=== PATIENT | female | born 1995 | race African-American/Black ===

== ENCOUNTER 2019-08-16 18:37 | Emergency (ER) | payer OTHER ==
--- NOTE | 2019-08-16 20:03 | ER ---
Nurse's Notes [facility] Name: Seema Rao Age: 23 yrs Sex: Female : 1995 Arrival Date: 08/16/2019 Time: 18:40 Bed Waiting Private MD: Diagnosis: ED Course: 08/15 18:40 Patient arrived in ED. fj1 19:10 Patient's name was called from ER lobby. No response. sg 19:15 Patient's name was called from ER lobby. No response. sg 19:30 Patient's name was called from ER lobby. No response. sg Administered Medications: No medications were administered Outcome: 20:02 Patient left the ED. sg Signatures: Chandler Hernandez RN RN Huan Arnold fj1
== END 2019-08-16 20:02 | disposition left against medical advice (07) ==
LOC: ER 18:37
DX: Z53.21 Procedure and treatment not carried out due to patient leaving prior to being seen by health care provider (principal)

== ENCOUNTER 2019-08-23 21:03 | Emergency (ER) | payer OTHER ==
--- OUTSIDE RECORDS SUMMARY | 2019-08-23 21:06 | XMS REPORT | Continuity of Care Document ---
:[address] [facility] t Address [facility] [place] [address] [place] [id number] Care Team Providers Name Role Phone Unavailable Unavailable Unavailable Problems This patient has no known problems. Allergies, Adverse Reactions, Alerts This patient has no known allergies or adverse reactions. Medications This patient has no known medications. Procedures This patient has no known procedures. Encounters Start End Encounter Admission Attending Care Care Encounter Source Date/Time Date/Time Type Type Clinicians Facility Department ID 2019-08-22 2019-08-22 Outpatient [id number] 05:24:00 05:24:00 Results This patient has no known results.
[2019-08-23] MEDS ORDERED: PROMETHAZINE INJ 25 MG/ML AMP ONE (21:56)
[2019-08-23] MEDS ORDERED: NA CHLORIDE 0.9% 500 ML ONE (21:57)
[2019-08-23] MEDS ORDERED: MORPHINE 4 MG/ML SYR ONE (21:57)
[2019-08-23 22:13] LABS: Absolute Lymphocytes (CBC) 0.8 K/uL (0.7-4.9); Basophils % 0.4 % (0-1.3); Hematocrit 43.4 % (36.0-45.0); Lymphocytes % 7.7 % (15.3-44.8); MPV 8.1 fL (7.6-11.3); RBC Red Blood Cell Count 4.93 M/uL (3.86-4.86)
[2019-08-23 22:34] LABS: ALT/SGPT 116 U/L (12-78); AST/SGOT 89 U/L (15-37); Albumin 4.3 g/dL (3.4-5.0); Alkaline Phosphatase 157 U/L (45-117); BUN Blood Urea Nitrogen 12 mg/dL (7-18); Bicarbonate 25 mmol/L (21-32); Bilirubin Direct 0.2 mg/dL (0-0.2); Bilirubin Total 0.6 mg/dL (0.2-1.0); Glucose Level 110 mg/dL (74-106); Lipase 170 U/L (73-393); Potassium 3.9 mmol/L (3.5-5.1); Protein, Total 9.1 g/dL (6.4-8.2); Sodium Level 138 mmol/L (136-145)
[2019-08-23 23:11] LABS: Blood Morphology Comment NOT SEEN (NOT SEEN); Platelet Estimate INCR
--- NOTE | 2019-08-23 23:25 | EDPHYS ---
Physician Documentation [facility] Name: Seema Rao Age: 23 yrs Sex: Female : 1995 Arrival Date: 08/23/2019 Time: 21:06 Bed 15 Private MD: ED Physician Florentin Barber HPI: 08/22 21:34 This 23 yrs old Black Female presents to ER via Ambulatory with complaints of Vomiting, rn Weakness. 21:34 The patient presents to the emergency department with nausea, vomiting, abdominal pain. rn Onset: The symptoms/episode began/occurred yesterday. Possible causes: recent surgery. The symptoms are aggravated by movement, pressure, The symptoms are alleviated by nothing. Severity of symptoms: At their worst the symptoms were moderate in the emergency department the symptoms are unchanged. The patient has not experienced similar symptoms in the past. The patient has been recently seen by a physician:. Reports had lap stevan yesterday, since then has been having abd pain and vomiting, not getting worse but sent with nausea medication that is not helping her. Also reports chest pain, worse with deep breathing, no trauma. No cough/hemoptysis. No hx of dvt/pe. No leg swelling. Reports hasn't been doing breathing exercises or coughing like directed. Surgery at [facility] yesterday. . 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 - Social history:: Smoking status: Patient denies any tobacco usage or history of. Patient/guardian denies using alcohol, street drugs, tobacco products. - Family history:: not pertinent. - Hospitalizations: : Patient was recently seen at. ROS: 21:34 Constitutional: Negative for fever, chills, and weight loss, Eyes: Negative for injury, rn pain, redness, and discharge, Neck: Negative for injury, pain, and swelling, Cardiovascular: Negative for edema Respiratory: Negative for cough, wheezing Abdomen/GI: + abd pain and nausea/vomiting Back: Negative for injury and pain, MS/Extremity: Negative for injury and deformity, Skin: Negative for injury, rash, and discoloration, Neuro: Negative for headache, weakness, numbness, tingling, and seizure. Exam: 21:34 Constitutional: This is a well developed, well nourished patient who is awake, alert, rn and in no acute distress. Head/Face: Normocephalic, atraumatic. ENT: dry MM Cardiovascular: Regular rate and rhythm. No JVD. No pulse deficits. Respiratory: Speaking full sentences. No increased work of breathing, no retractions or nasal flaring. Abdomen/GI: soft, in all quadrants, especially near surgical ports. Wounds c/d/i. No rebound. Skin: Warm, dry MS/ Extremity: Pulses equal, no cyanosis. Neurovascular intact. Full, normal range of motion. Equal circumference. Neuro: Awake and alert, GCS 15 Vital Signs: 21:13 BP 104 / 78; Pulse 96; Resp 17; Temp 98.7; Pulse Ox 98% ; Pain 7/10; ll1 08/23 00:15 BP 125 / 84; Pulse 83; Resp 16; Temp 98.2; Pulse Ox 100% ; Pain 0/10; ao MDM: 08/22 21:21 Patient medically screened. rn 23:22 Differential diagnosis: post surgical pain, PE, pleurisy, biliary leak or fluid rn collection. Data reviewed: vital signs, nurses notes, lab test result(s), radiologic studies, CT scan, and as a result, I will discharge patient. Counseling: I had a detailed discussion with the patient and/or guardian regarding: the historical points, exam findings, and any diagnostic results supporting the discharge/admit diagnosis, lab results, radiology results, the need for outpatient follow up, to return to the emergency department if symptoms worsen or persist or if there are any questions or concerns that arise at home. Response to treatment: the patient's symptoms have markedly improved after treatment, and as a result, I will discharge patient. Special discussion: Based on the patient's Hx, exam, and Dx evaluation, there is no indication for emergent surgery or inpatient Tx. It is understood by the patient/guardian that if the Sx's persist or worsen they need to return immediately for re-evaluation. I discussed with the patient/guardian in detail that at this point there is no indication for admission to the hospital. It is understood, however, that if the symptoms persist or worsen the patient needs to return immediately for re-evaluation. ED course: CT chest for PE and abdomen/pelvis neg for PE and post-surgical complication, everything consistent with post-surgical/expected pain. No vomiting or nausea after zofran. States has zofran at home that she picked up today. Will dc home with f/u as needed. . 08/22 21:33 Order name: Basic Metabolic Panel; Complete Time: 23:17 rn 08/22 21:33 Order name: CBC with Diff; Complete Time: 23:17 rn 08/22 21:33 Order name: Hepatic Function; Complete Time: 23:17 rn 08/22 21:33 Order name: Lipase; Complete Time: 23:17 rn 08/22 21:33 Order name: CT Chest For PE Angio rn 08/22 22:17 Order name: Manual Differential; Complete Time: 23:17 EDMS 08/22 21:33 Order name: IV Saline Lock; Complete Time: 22:00 rn 08/22 21:33 Order name: Labs collected and sent; Complete Time: 22:00 rn 08/22 21:33 Order name: CT Abd/Pelvis - IV Contrast Only rn Administered Medications: 21:56 Drug: Phenergan 12.5 mg Route: IVP; Site: right antecubital; ao 22:00 Drug: morphine 4 mg Route: IVP; Site: right antecubital; ao 22:00 Drug: NS 0.9% 500 ml Route: IV; Rate: bolus; Site: right antecubital; ao Disposition: 08/23/19 23:24 Discharged to Home. Impression: Vomiting, unspecified, Pleurisy, Post-surgical abdominal pain. - Condition is Stable. - Discharge Instructions: Nausea and Vomiting, Adult, Pleurisy, Laparoscopic Cholecystectomy, Care After, Cholecystostomy, Care After. - Medication Reconciliation Form, Thank You Letter, Antibiotic Education, Prescription Opioid Use form. - Follow up: Private Physician; When: As needed; Reason: Recheck today's complaints, Re-evaluation by your physician. - Problem is new. - Symptoms have improved. Signatures: Dispatcher [employer] EDMS Florentin Barber MD MD rn Ortiz, Alex, RN RN ao Lewis, Lynsay, RN RN ll1 Corrections: (The following items were deleted from the chart) 08/23 00:16 08/22 23:24 08/23/2019 23:24 Discharged to Home. Impression: Vomiting, unspecified; ao Pleurisy; Post-surgical abdominal pain. Condition is Stable. Forms are Medication Reconciliation Form, Thank You Letter, Antibiotic Education, Prescription Opioid Use. Follow up: Private Physician; When: As needed; Reason: Recheck today's complaints, Re-evaluation by your physician. Problem is new. Symptoms have improved. rn
--- NOTE | 2019-08-23 23:25 | ER ---
Nurse's Notes [facility] Name: Seema Rao Age: 23 yrs Sex: Female : 1995 Arrival Date: 08/23/2019 Time: 21:06 Bed 15 Private MD: Diagnosis: Vomiting, unspecified;Pleurisy;Post-surgical abdominal pain Presentation: 08/22 21:13 Chief complaint: Patient states: Abdominal pain with N/V since cholecystectomy ll1 yesterday at [facility]. Fever 99.1. Pain to mid chest and SOB with pain. Coronavirus screen: Proceed with normal triage. Patient denies a cough. Patient denies shortness of breath or difficulty breathing. Patient denies measured and/or subjective temperature greater than 100.4F prior to today's visit. Patient denies travel on a cruise ship or to a country the [facility]NOTE 2] currently lists as an affected area. Patient denies contact with known and/or suspected case of COVID-19. Ebola Screen: Patient denies travel to an Ebola-affected area in the 21 days before illness onset. Initial Sepsis Screen: Does the patient meet any 2 criteria? HR > 90 bpm. No. Patient's initial sepsis screen is negative. Does the patient have a suspected source of infection? Yes: Acute abdominal pain. Risk Assessment: Do you want to hurt yourself or someone else? Patient reports no desire to harm self or others. Onset of symptoms was August 22, 2019. 21:13 Method Of Arrival: Ambulatory ll1 21:13 Acuity: MARY ANNE 3 ll1 Triage Assessment: 23:00 General: Appears in no apparent distress. uncomfortable, Behavior is calm, cooperative, ao appropriate for age. Pain: Complains of pain in abdomen. EENT: No signs and/or symptoms were reported regarding the EENT system. Neuro: Level of Consciousness is awake, alert, obeys commands, Oriented to person, place, time, situation, Appropriate for age Moves all extremities. Full function Speech is normal. Cardiovascular: Capillary refill < 3 seconds Patient's skin is warm and dry. Respiratory: Airway is patent Respiratory effort is even, unlabored. GI: Abdomen is non-distended, Reports lower abdominal pain, nausea, vomiting. : No signs and/or symptoms were reported regarding the genitourinary system. Derm: Skin is intact, Skin is pink, warm \T\ dry. normal, Skin temperature is warm. Musculoskeletal: No signs and/or symptoms reported regarding the musculoskeletal system. 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 - Social history:: Smoking status: Patient denies any tobacco usage or history of. Patient/guardian denies using alcohol, street drugs, tobacco products. - Family history:: not pertinent. - Hospitalizations: : Patient was recently seen at. Screenin/17 00:08 Abuse screen: Denies threats or abuse. Denies injuries from another. Nutritional ao screening: No deficits noted. Tuberculosis screening: No symptoms or risk factors identified. Fall Risk None identified. Assessment: 08/22 23:00 General: Appears See triage assessment. ao 08/23 00:14 Reassessment: Dc given to patient. Pt agree with POC and to follow up with PCP. ao Vital Signs: 08/22 21:13 BP 104 / 78; Pulse 96; Resp 17; Temp 98.7; Pulse Ox 98% ; Pain 7/10; ll1 08/23 00:15 BP 125 / 84; Pulse 83; Resp 16; Temp 98.2; Pulse Ox 100% ; Pain 0/10; ao ED Course: 08/22 21:06 Patient arrived in ED. cl3 21:15 Triage completed. ll1 21:15 Arm band placed on. ll1 21:21 Florentin Barber MD is Attending Physician. rn 21:38 Elmer Latham RN is Primary Nurse. ao 21:55 Inserted saline lock: 20 gauge in right antecubital area, using aseptic technique. ao Blood collected. 22:52 CT Chest For PE Angio In Process Unspecified. EDMS 22:52 CT Abd/Pelvis - IV Contrast Only In Process Unspecified. EDMS 08/23 00:14 No provider procedures requiring assistance completed. IV discontinued, intact, ao bleeding controlled, No redness/swelling at site. Pressure dressing applied. 00:15 Patient has correct armband on for positive identification. Pulse ox on. NIBP on. ao Administered Medications: 08/22 21:56 Drug: Phenergan 12.5 mg Route: IVP; Site: right antecubital; ao 22:00 Drug: morphine 4 mg Route: IVP; Site: right antecubital; ao 22:00 Drug: NS 0.9% 500 ml Route: IV; Rate: bolus; Site: right antecubital; ao Outcome: 23:24 Discharge ordered by MD. mccoy 08/23 00:15 Discharged to home ambulatory. ao Condition: stable Discharge instructions given to patient, Instructed on discharge instructions, follow up and referral plans. Demonstrated understanding of instructions, follow-up care, medications. 00:16 Patient left the ED. ao Signatures: Dispatcher [employer] EDMS Florentin Barber MD MD rn Ortiz, Alex, RN RN ao Lewis, Charde cl3 Jude Diaz RN RN ll1
[2019-08-24 00:41] VITALS: BP 125/84; TEMP 98.2; O2SAT 100
--- NOTE | 2019-08-24 21:16 | RAD REPORT ---
EXAM DESCRIPTION: CT Angiography Chest With Intravenous Contrast CLINICAL HISTORY: The patient is 23 years old and is Female; recent surgery, chest pain TECHNIQUE: Axial computed tomographic angiography images of the chest with intravenous contrast. S agittal and coronal reformatted images were created and reviewed. This CT exam was performed using one or more of the following dose reduction techniques: automated exposure control, adjustment of t he mA and/or kV according to patient size, and/or use of iterative reconstruction technique. MIP reconstructed images were created and reviewed. COMPARISON: No relevant prior studies available. FINDINGS: PULMONARY ARTERIES: Unremarkable. No pulmonary embolism. AORTA: No acute findings. No thoracic aortic aneurysm. LUNGS: Unremarkable. No mass. No consolidation. PLEURAL SPACE: Unremarkable. No significant effusion. No pneumothorax. HEART: Unremarkable. No cardiomegaly. No significant pericardial effusion. No evidence of RV dysfunction. BONES/JOINTS: No acute fracture. No dislocation. SOFT TISSUES: Unremarkable. LYMPH NODES: Unremarkable. No enlarged lymph nodes. IMPRESSION: Normal chest CTA. No pulmonary embolism. Electronically signed by: Heather Wilburn MD 08/23/2019 10:56 PM CDT Due to temporary technical issues with the PACS/Fluency reporting system, reports are being signed by the in house radiologist without review as a courtesy to ensure prompt reporting. The interpreting r adiologist is fully responsible for the content of the report.
--- NOTE | 2019-08-24 21:28 | RAD REPORT ---
EXAM DESCRIPTION: CT Abdomen and Pelvis With Intravenous Contrast CLINICAL HISTORY: The patient is 23 years old and is Female; 1 day s/p cholecystectomy;Abd pain TECHNIQUE: Axial computed tomography images of the abdomen and pelvis with intravenous contrast. S agittal and coronal reformatted images were created and reviewed. This CT exam was performed using one or more of the following dose reduction techniques: automated exposure control, adjustment of t he mA and/or kV according to patient size, and/or use of iterative reconstruction technique. COMPARISON: No relevant prior studies available. FINDINGS: LUNG BASES: Unremarkable. No mass. No consolidation. ABDOMEN: LIVER: Unremarkable. No mass. GALLBLADDER AND BILE DUCTS: Surgical clips are present in the right upper quadrant, consistent wi th previous cholecystectomy. Trace amount of fluid is noted at the level of the gallbladder fossa. PANCREAS: No ductal dilation. No mass. SPLEEN: Unremarkable. ADRENALS: Unremarkable. No mass. KIDNEYS AND URETERS: Unremarkable. The kidneys enhance symmetrically. No obstructing renal or ure teral calculus is seen. No hydronephrosis or hydroureter. No perinephric fluid or stranding. STOMACH AND BOWEL: The stomach is minimally fluid filled. The small bowel is normal in caliber. Stool is present throughout colon. There is no mucosal thickening or evidence of bowel obstruction. PELVIS: APPENDIX: The appendix is normal in caliber without surrounding inflammation. BLADDER: Unremarkable. No mass. REPRODUCTIVE: A 2.4 cm left ovarian cyst is present. No follow-up imaging is recommended. The alatna pippa and right ovary are normal. ABDOMEN and PELVIS: INTRAPERITONEAL SPACE: Trace amount of intraperitoneal free air is noted within the right upper q uadrant. Trace free fluid is present within the pelvis which is likely physiologic. BONES/JOINTS: No acute fracture. SOFT TISSUES: Subcutaneous air is present within the soft tissues of the right anterior abdomina l wall. VASCULATURE: Unremarkable. No abdominal aortic aneurysm. LYMPH NODES: Unremarkable. No enlarged lymph nodes. IMPRESSION: Recent cholecystectomy with trace amount of free fluid at the level of the gallbladder fossa and as sociated foci of intraperitoneal free air, postsurgical. No drainable fluid collection to suggest abs cess. Electronically signed by: Heather Wilburn MD 08/23/2019 10:58 PM CDT Due to temporary technical issues with the PACS/Fluency reporting system, reports are being signed by the in house radiologist without review as a courtesy to ensure prompt reporting. The interpreting r adiologist is fully responsible for the content of the report.
== END 2019-08-24 00:16 | disposition home or self-care (01) ==
LOC: ER 21:03
DX: R09.1 Pleurisy (principal); G89.18 Other acute postprocedural pain; Z90.49 Acquired absence of other specified parts of digestive tract
CPT/HCPCS: 85025; 80048; 36415; 80076; 83690; 71275; 74177; 96375; 96374; 99284; Q9967; J2550; J7040

== ENCOUNTER 2019-10-17 21:49 | Emergency (ER) | payer OTHER ==
--- OUTSIDE RECORDS SUMMARY | 2019-10-17 21:50 | XMS REPORT | Continuity of Care Document ---
:1995 Author Organization [facility] [employer] Care Team Providers Name Role Phone [facility] [employer] Unavailable Un available Problems Problem Status Onset Classification Date Comments Sourc e Date Reported UNK Active 08/16/19 [facility] [place] COVID TESTING Active 08/16/19 Mem[facility] 20 [place] LAPAROSCOPIC Active 08/16/19 Memoria l CHOLECYSTECTOMY 20 [place] johnnie Medications Medication Details Route Status Patient Ordering Order Source Instructions Provider Date Phenergan Notes: Do not Inactive give IV push. 2019 [place] (Same as: Phenergan) Acetaminophen Notes: Infuse Inactive over 15 minutes 2019 [place] Do not exceed 4gm/day of acetaminophen MEDICATION WASTE Product Size: 1000 mg Product Wasted: ___ mg Morphine 2 mg, 1 mL, Inactive Route: IVP, 2019 [place] Drug form: SOLN, Q5Min, Dosing Weight 63.636, kg, PRN Pain Score 4-6, Start date: 08/22/19 9:14:00 CDT, Duration: 5 doses or times, Stop date: Limited # of times, 0 Hydromorphone Notes: Same as: Inactive H Dilaudid 2019 [place] Flumazenil Notes: (Same Inactive as: Romazicon) 2019 [place] Naloxone Notes: Same as Inactive Narcan 2019 [place] Ondansetron 4 mg, Route: Inactive IVP, ONCE, 2019 [place] Dosing Weight 63.636, kg, PRN Nausea & Vomiting, Start date: 08/22/19 9:14:00 CDT glycopyrrolate Route: IV, Drug Inactive (ANES) form: INJ, 2019 [place] ONCE, Stop date: 08/22/19 8:56:00 CDT neostigmine Route: IV, Drug Inactive (ANES) form: INJ, 2019 [place] ONCE, Stop date: 08/22/19 8:56:00 CDT Acetaminophen Notes: Do not Inactive MH 300 MG / Codeine exceed 4gm/day 2019 [place] Phosphate 30 MG of Oral Tablet acetaminophen. [Tylenol with (Same as: Codeine #3] Tylenol with Codeine # 3) Acetaminophen 1 - 2 tab, PO, Active 300 MG / Codeine Q6H, PRN Pain, 2019 [place] Phosphate 30 MG Take with Oral Tablet food., X 5 day, [Tylenol with # 24 tab, 0 Codeine #3] Refill(s) Ibuprofen 800 MG 800 mg = 1 tab, Active Oral Tablet PO, TID-Meals, 2019 [place] and [Motrin] with food or milk not to exceed 3200 mg/day, X 5 day, # 15 tab, 0 Refill(s) ceFAZolin (ANES) Route: IV, Drug Inactive MH form: INJ, 2019 [place] ONCE, Stop date: 08/22/19 8:29:00 CDT acetaminophen Route: IV, Drug Inactive 08/21/ M H (ANES) form: INJ, 2019 [place] ONCE, Stop date: 08/22/19 8:29:00 CDT ondansetron Route: IV, Drug Inactive 08/21/ MH (ANES) form: INJ, 2019 [place] ONCE, Stop date: 08/22/19 8:29:00 CDT dexamethasone Route: IV, Drug Inactive 08/21/ M H (ANES) form: INJ, 2019 [place] ONCE, Stop date: 08/22/19 8:29:00 CDT midazolam (ANES) Route: IV, Drug Inactive 08/21/ MH form: SOLN, 2019 [place] ONCE, Stop date: 08/22/19 8:24:00 CDT lidocaine (ANES) Route: IV, Drug Inactive 08/21/ MH form: INJ, 2019 [place] ONCE, Stop date: 08/22/19 8:24:00 CDT fentaNYL (ANES) Route: IV, Drug Inactive 08/21/ MH form: INJ, 2019 [place] ONCE, Stop date: 08/22/19 8:24:00 CDT propofol (ANES) Route: IV, Drug Inactive 06/15/ MH form: INJ, 2019 [place] ONCE, Stop date: 08/22/19 8:24:00 CDT rocuronium Route: IV, Drug Inactive (ANES) form: INJ, 2019 [place] ONCE, Stop date: 08/22/19 8:24:00 CDT Lactated Ringers Route: IV, Inactive Injection IV Total Volume: 2019 [place] and (ANES) 1000 mL 1,000, Start date: 08/22/19 7:33:00 CDT, Stop date: 08/22/19 8:33:00 CDT 72 HR 1 patch, Route: Inactive Scopolamine TOP, Drug Form: 2019 [place] 0.0139 MG/HR ERFILM, Dosing Transdermal Weight 63.636, Patch kg, ONCE, Start date: 08/22/19 7:23:00 CDT, Stop date: 08/22/19 7:23:00 CDT Calcium Chloride 1,000 mL, Rate: Inactive 0.0014 MEQ/ML / 75 ml/hr, 2019 [place] Potassium Infuse over: Chloride 0.004 13.3 hr, Route: MEQ/ML / Sodium IV, Dosing Chloride 0.103 Weight 63.636 MEQ/ML / Sodium kg, Total Lactate 0.028 Volume: 1,000, MEQ/ML Start date: Injectable 08/22/19 Solution 6:45:00 CDT, Duration: 30 day, Stop date: 09/21/19 6:44:00 CDT, 1.69, m2, 0 Calcium Chloride 1,000 mL, Rate: Inactive 0.0014 MEQ/ML / 75 ml/hr, 2019 [place] Potassium Infuse over: Chloride 0.004 13.3 hr, Route: MEQ/ML / Sodium IV, Dosing Chloride 0.103 Weight 63.636 MEQ/ML / Sodium kg, Total Lactate 0.028 Volume: 1,000, MEQ/ML Start date: Injectable 08/22/19 Solution 6:40:00 CDT, Duration: 30 day, Stop date: 09/21/19 6:39:00 CDT, 1.69, m2, 0 Lactated Ringers 1,000 mL, Rate: Inactive IV 1,000 mL 40 ml/hr, 2019 [place] Infuse over: 25 hr, Route: IV, Dosing Weight 63.636 kg, Total Volume: 1,000, Start date: 08/22/19 6:16:00 CDT, Duration: 30 day, Stop date: 09/21/19 6:15:00 CDT, 1.69, m2, 0 Tramadol 50 mg, PO, No Longer Q4-6H, PRN Active 2019 [place] Pain, # 20 tab, 0 Refill(s) Famotidine 20 MG 20 mg = 1 tab, Active Oral Tablet PO, PRN, 0 2019 [place] Refill(s) Allergies, Adverse Reactions, Alerts No Known Medication Allergies Immunizations No Data Provided for This Section Results Order Name Results Value Reference Date Interpretation Comments Tyesha rce Range URINE CHEM U Preg Negative Negative (08/22/19 6:17 AM) [place] IMMUNOLOGY Coronavirus Not Detected Not (COVID-19) (08/19/19 2:56 PM) Detected 2019 [place] MAICOL Pathology Reports No Data Provided for This Section Diagnostic Reports No Data Provided for This Section Consultation Notes No Data Provided for This Section Discharge Summaries No Data Provided for This Section History and Physicals No Data Provided for This Section Vital Signs Vital Sign Value Date Comments Source Respitory Rate 14 08/22/2019 [facility] Systolic (mm Hg) 146 08/22/2019 [facility] Diastolic (mm Hg) 105 08/22/2019 [place] Respitory Rate 14 08/22/2019 [facility] Systolic (mm Hg) 146 08/22/2019 [facility] Diastolic (mm Hg) 101 [facility] 20 08/22/2019 [facility] Systolic (mm Hg) 151 08/22/2019 [facility] Diastolic (mm Hg) 105 [facility] 157.48 cm 08/18/2019 [facility] Weight 63.636 08/18/2019 [facility] BMI Calculated 25.66 08/18/2019 [facility] Encounters Location Location Encounter Encounter Reason Attending ADM [place] Stat us Source Details Type Number For Provider Date Date Visit [id number] Yang 08/21 08/21 [place] [facility] /2019 [facility] Procedures No Data Provided for This Section Assessment and Plan No Data Provided for This Section Plan of Care No Data Provided for This Section Social History Social History Date Source Social History TypeResponse 08/18/2019 [facility] Alcohol Current, Type Beer, Wine, Liquor. Frequency: 1-2 times per month. Substance Abuse Use: None. Smoking Status Never smoker; Exposure to Tobacco Smoke None; Cigarette Smoking Last 365 Days No; Reg Smoking Cessation Counseling No entered on: 08/22/19 Family History No Data Provided for This Section Advance Directives No Data Provided for This Section Functional Status No Data Provided for This Section
--- OUTSIDE RECORDS SUMMARY | 2019-10-17 21:50 | XMS REPORT | Summary of Care ---
:1995 Author Organization [facility] Address [id number] [place] [phone]- Encounter HQ Lena(FIN) [id number] Date(s): 08/22/19 - 08/22/19 [facility] [id number] [place] [address] [phone]- [phone] Discharge Disposition: Home or Self Care Attending Physician: Yang Addison MD Referring Physician: Yang Addison MD Vital Signs Most recent to oldest 1 2 3 [Reference Range]: Height 157.48 cm (08/18/19 10:56 AM) Blood Pressure [90-140/60-90 146/105 mmHg 146/101 mmHg 151 /105 mmHg mmHg] *HI* *HI* *HI* (08/22/19 10:40 AM) (08/22/19 10:25 AM) (08/22/19 1 0:09 AM) Respiratory Rate [14-20 14 BRMIN 14 BRMIN 20 BRMIN BRMIN] (08/22/19 10:40 AM) (08/22/19 10:25 AM) (08/22/19 1 0:09 AM) Weight 63.636 kg (08/18/19 10:56 AM) Body Mass Index 25.66 m2 (08/18/19 10:56 AM) Problem List No data available for this section Allergies, Adverse Reactions, Alerts No Known Allergies Medications acetaminophen (ANES) Route: IV, Drug form: INJ, ONCE, Stop date: 08/22/19 8:29:00 CDT Start Date: 08/22/19 Stop Date: 08/22/19 Status: CompletedANES acetaminophen 1,000 mg, 100 mL, Route: IVPB, Drug form: INJ, ONCE, Dosing Weight 63.636, kg, PRN Pain Score 1-3, Start date: 08/22/19 9:14:00 CDT, 0 Notes: Infuse over 15 minutesDo not exceed 4gm/day of acetaminophen MEDICATION WASTE ProductSize: 1000 mgProduct Wasted: ___ mg Start Date: 08/22/19 Stop Date: 08/22/19 Status: DiscontinuedANES flumazenil 0.2 mg, 2 mL, Route: IVP, Drug form: INJ, PRN, Dosing Weight 63.636, kg, PRN Benzodiazepine Reversal, Initial dose, Start date: 08/22/19 9:14:00 CDT, Duration: 30 day, Stop date: 09/21/19 9:13:00 CDT, 0 Notes: (Same as: Romazicon) Start Date: 08/22/19 Stop Date: 08/22/19 Status: DiscontinuedANES HYDROmorphone 0.5 mg, 0.5 mL, Route: IVP, Drug form: INJ, Q5Min, Dosing Weight 63.636, kg, PRN Pain Score 7-10, Start date: 08/22/19 9:14:00 CDT, Duration: 4 doses or times, Stop date: Limited # of times, 0 Notes: Same as: Dilaudid Start Date: 08/22/19 Stop Date: 08/22/19 Status: DiscontinuedANES morphine Sulfate 2 mg, 1 mL, Route: IVP, Drug form: SOLN, Q5Min, Dosing Weight 63.636, kg, PRN Pain Score 4-6, Start date: 08/22/19 9:14:00 CDT, Duration: 5 doses or times, Stop date: Limited # of times, 0 Start Date: 08/22/19 Stop Date: 08/22/19 Status: DiscontinuedANES naloxone 0.4 mg, 1 mL, Route: IVP, Drug form: INJ, Q2MIN, Dosing Weight 63.636, kg, PRN Narcotic Reversal, Start date: 08/22/19 9:14:00 CDT, Duration: 8 doses or times, Stop date: Limited # of times, 0 Notes: Same as Narcan Start Date: 08/22/19 Stop Date: 08/22/19 Status: DiscontinuedANES ondansetron 4 mg, Route: IVP, ONCE, Dosing Weight 63.636, kg, PRN Nausea & Vomiting, Start date: 08/22/19 9:14:00 CDT Start Date: 08/22/19 Stop Date: 08/22/19 Status: CompletedceFAZolin (ANES) Route: IV, Drug form: INJ, ONCE, Stop date: 08/22/19 8:29:00 CDT Start Date: 08/22/19 Stop Date: 08/22/19 Status: Completeddexamethasone (ANES) Route: IV, Drug form: INJ, ONCE, Stop date: 08/22/19 8:29:00 CDT Start Date: 08/22/19 Stop Date: 08/22/19 Status: Completedfamotidine 20 mg oral tablet 20 mg = 1 tab, PO, PRN, 0 Refill(s) Start Date: 08/18/19 Status: OrderedfentaNYL (ANES) Route: IV, Drug form: INJ, ONCE, Stop date: 08/22/19 8:24:00 CDT Start Date: 08/22/19 Stop Date: 08/22/19 Status: Completedglycopyrrolate (ANES) Route: IV, Drug form: INJ, ONCE, Stop date: 08/22/19 8:56:00 CDT Start Date: 08/22/19 Stop Date: 08/22/19 Status: CompletedLactated Ringers Injection IV (ANES) 1000 mL Route: IV, Total Volume: 1,000, Start date: 08/22/19 7:33:00 CDT, Stop date: 08/22/19 8:33:00 CDT Start Date: 08/22/19 Stop Date: 08/22/19 Status: CompletedLactated Ringers Injection IV 1,000 mL 1,000 mL, Rate: 75 ml/hr, Infuse over: 13.3 hr, Route: IV, Dosing Weight 63.636 kg, Total Volume: 1,000, Start date: 08/22/19 6:40:00 CDT, Duration: 30 day, Stop date: 09/21/19 6:39:00 CDT, 1.69, m2, 0 Start Date: 08/22/19 Stop Date: 08/22/19 Status: DiscontinuedLactated Ringers Injection IV 1,000 mL 1,000 mL, Rate: 75 ml/hr, Infuse over: 13.3 hr, Route: IV, Dosing Weight 63.636 kg, Total Volume: 1,000, Start date: 08/22/19 6:45:00 CDT, Duration: 30 day, Stop date: 09/21/19 6:44:00 CDT, 1.69, m2, 0 Start Date: 08/22/19 Stop Date: 08/22/19 Status: DiscontinuedLactated Ringers IV 1,000 mL 1,000 mL, Rate: 40 ml/hr, Infuse over: 25 hr, Route: IV, Dosing Weight 63.636 kg, Total Volume: 1,000, Start date: 08/22/19 6:16:00 CDT, Duration: 30 day, Stop date: 09/21/19 6:15:00 CDT, 1.69, m2, 0 Start Date: 08/22/19 Stop Date: 08/22/19 Status: Discontinuedlidocaine (ANES) Route: IV, Drug form: INJ, ONCE, Stop date: 08/22/19 8:24:00 CDT Start Date: 08/22/19 Stop Date: 08/22/19 Status: Completedmidazolam (ANES) Route: IV, Drug form: SOLN, ONCE, Stop date: 08/22/19 8:24:00 CDT Start Date: 08/22/19 Stop Date: 08/22/19 Status: CompletedMotrin 800 mg oral tablet 800 mg = 1 tab, PO, TID-Meals, with food or milk not to exceed 3200 mg/day, X 5 day, # 15 tab, 0 Refill(s) Start Date: 08/22/19 Stop Date: 08/27/19 Status: Orderedneostigmine (ANES) Route: IV, Drug form: INJ, ONCE, Stop date: 08/22/19 8:56:00 CDT Start Date: 08/22/19 Stop Date: 08/22/19 Status: Completedondansetron (ANES) Route: IV, Drug form: INJ, ONCE, Stop date: 08/22/19 8:29:00 CDT Start Date: 08/22/19 Stop Date: 08/22/19 Status: CompletedPhenergan 12.5 mg, 0.5 mL, Route: IM, Drug form: INJ, ONCE, Dosing Weight 63.636, kg, Start date: 08/22/19 9:49:00 CDT, Stop date: 08/22/19 9:49:00 CDT, 0 Notes: Do not give IV push. (Same as: Phenergan) Start Date: 08/22/19 Stop Date: 08/22/19 Status: Completedpropofol (ANES) Route: IV, Drug form: INJ, ONCE, Stop date: 08/22/19 8:24:00 CDT Start Date: 08/22/19 Stop Date: 08/22/19 Status: Completedrocuronium (ANES) Route: IV, Drug form: INJ, ONCE, Stop date: 08/22/19 8:24:00 CDT Start Date: 08/22/19 Stop Date: 08/22/19 Status: Completedscopolamine 1.5 mg transdermal film 1 patch, Route: TOP, Drug Form: ERFILM, Dosing Weight 63.636, kg, ONCE, Start date: 08/22/19 7:23:00CDT, Stop date: 08/22/19 7:23:00 CDT Start Date: 08/22/19 Stop Date: 08/22/19 Status: Completedtramadol 50 mg, PO, Q4-6H, PRN Pain, # 20 tab, 0 Refill(s) Start Date: 08/18/19 Stop Date: 08/22/19 Status: DiscontinuedTylenol with Codeine #3 oral tablet 1 - 2 tab, PO, Q6H, PRN Pain, Take with food., X 5 day, # 24 tab, 0 Refill(s) Start Date: 08/22/19 Stop Date: 08/27/19 Status: OrderedTylenol with Codeine #3 oral tablet 2 tab, Route: PO, Drug Form: TAB, Dosing Weight 63.636, kg, ONCE, Start date: 08/22/19 8:53:00 CDT, Stop date: 08/22/19 8:53:00 CDT, 0 Notes: Do not exceed 4gm/day of acetaminophen. (Same as: Tylenol with Codeine # 3) Start Date: 08/22/19 Stop Date: 08/22/19 Status: Ordered Results Most recent to oldest [Reference Range]: 1 Coronavirus (COVID-19) MAICOL [Not Detected] Not Detected (08/19/19 2:56 PM) U Preg [Negative] Negative (08/22/19 6:17 AM) Immunizations No data available for this section Procedures No data available for this section Social History Social History Type Response Alcohol Current, Type Beer, Wine, Li quor. Frequency: 1-2 times per month. Substance Abuse Use: None. Smoking Status Never smoker; Exposure to To bacco Smoke None; Cigarette Smoking Last 365 Days No; Reg Smoking Cessation Counseling No entered on: 08/22/19 Assessment and Plan No data available for this section
--- OUTSIDE RECORDS SUMMARY | 2019-10-17 21:51 | XMS REPORT | Continuity of Care Document ---
:1995 Author Organization [facility] t Address [facility] Chucho [address] [place] [address] Care Team Providers Name Role Phone Gwyn Addison Attending Clinician Problems Condition Condition Condition Status Onset Resolution Last Treating Co mments Source Name Details Category Date Date Treatment Clinician Date UNK Diagnosis Active 2019-08-19 Mem oria 08-15 10:08:00 l UNK 00:00: Chucho 00 Active 08/16/2019 [facility] COVID Diagnosis Active 2019-08-19 Mem oria TESTING 08-15 14:21:00 l COVID 00:00: [place] TESTING 00 Active 08/16/2019 [facility] LAPAROSCOP Diagnosis Active 2019-09-27 Memoria IC 08-15 10:58:00 l CHOLECYSTE 00:00: Carlos n CTOMY LAPAROSCOP 00 IC CHOLECYSTE CTOMY Active 08/16/2019 [facility] Allergies, Adverse Reactions, Alerts This patient has no known allergies or adverse reactions. Social History Social Habit Start Date Stop Date Quantity Comments Source Social History 2019-08-18 [facility] 15:57:[facility] Medications Ordered Filled Start Stop Current Ordering Indication Dosage Frequency Signature Comments Components Source Medication Medication Date Date Medication? Clinician (SIG) Name Name Phenergan No Notes: Do Mem oria 6-15 not give l 14:49: IV push. (Same as: Phenergan) Acetaminoph No Notes: [place] en 6-15 Infuse l 14:14: over 15 00 minutes Do not exceed 4gm/day of acetaminop hen MEDICATION WASTE Product Size: 1000 mg Product Wasted: ___ mg Morphine No 2 mg, 1 Memori a 6-15 mL, Route: l 14:14: IVP, Drug form: SOLN, Q5Min, Dosing Weight 63.636, kg, PRN Pain Score 4-6, Start date: 08/22/19 9:14:00 CDT, Duration: 5 doses or times, Stop date: Limited # of times, 0 Hydromorpho No Notes: [place] ne 6-15 Same as: l 14:14: Dilaudid Flumazenil No Notes: Memor ia 6-15 (Same as: l 14:14: Romazicon) Naloxone No Notes: Memoria 6-15 Same as l 14:14: Narcan Ondansetron No 4 mg, Memor ia 6-15 Route: l 14:14: IVP, ONCE, Dosing Weight 63.636, kg, PRN Nausea & Vomiting, Start date: 08/22/19 9:14:00 CDT glycopyrrol No Route: IV, Memoria ate (ANES) 15 Drug form: l 13:56: INJ, ONCE, Stop date: 08/22/19 8:56:00 CDT neostigmine No Route: IV, Memoria (ANES) 6-15 Drug form: l 13:56: INJ, ONCE, Stop date: 08/22/19 8:56:00 CDT Acetaminoph Yes Notes: Do M emoria en 300 MG / 6-15 not exceed l Codeine 13:53: 4gm/day of Herm johnnie acetaminop 30 MG Oral hen. Tablet (Same as: [Tylenol Tylenol with with Codeine #3] Codeine # 3) Acetaminoph Yes 1 - 2 tab, Memoria en 300 MG / 6-15 PO, Q6H, l Codeine 13:51: PRN Pain, Elizabeth nn Phosphate 00 Take with 30 MG Oral food., X 5 Tablet day, # 24 [Tylenol tab, 0 with Refill(s) Codeine #3] Ibuprofen Yes 800 mg = 1 Me moria 800 MG Oral 6-15 tab, PO, l Tablet 13:51: TID-Meals, Elizabeth nn [Motrin] 00 with food or milk not to exceed 3200 mg/day, X 5 day, # 15 tab, 0 Refill(s) ceFAZolin 2020-0 No Route: IV, Me moria (ANES) 6-15 Drug form: l 13:29: INJ, ONCE, Stop date: 08/22/19 8:29:00 CDT acetaminoph 2020-0 No Route: IV, Memoria en (ANES) 6-15 Drug form: l 13:29: INJ, ONCE, Stop date: 08/22/19 8:29:00 CDT ondansetron 2020-0 No Route: IV, Memoria (ANES) 6-15 Drug form: l 13:29: INJ, ONCE, Stop date: 08/22/19 8:29:00 CDT dexamethaso 2020-0 No Route: IV, Memoria ne (ANES) 6-15 Drug form: l 13:29: INJ, ONCE, Stop date: 08/22/19 8:29:00 CDT midazolam 2020-0 No Route: IV, Me moria (ANES) 6-15 Drug form: l 13:24: SOLN, ONCE, Stop date: 08/22/19 8:24:00 CDT lidocaine 2020-0 No Route: IV, Me moria (ANES) 6-15 Drug form: l 13:24: INJ, ONCE, Stop date: 08/22/19 8:24:00 CDT fentaNYL 2020-0 No Route: IV, Mem oria (ANES) 6-15 Drug form: l 13:24: INJ, ONCE, Stop date: 08/22/19 8:24:00 CDT propofol 2020-0 No Route: IV, Mem oria (ANES) 6-15 Drug form: l 13:24: INJ, ONCE, Stop date: 08/22/19 8:24:00 CDT rocuronium 2020-0 No Route: IV, M emoria (ANES) 6-15 Drug form: l 13:24: INJ, ONCE, Stop date: 08/22/19 8:24:00 CDT Lactated 2020-0 No Route: IV, Mem oria Ringers 6-15 Total l Injection 12:33: Volume: Elizabeth nn IV (ANES) 00 1,000, 1000 mL Start date: 08/22/19 7:33:00 CDT, Stop date: 08/22/19 8:33:00 CDT 72 HR 2020-0 No 1 patch, Memoria Scopolamine - Route: l 0.0139 12:23: TOP, Drug Carlos n MG/HR 00 Form: Transdermal ERFILM, Patch Dosing Weight 63.636, kg, ONCE, Start date: 08/22/19 7:23:00 CDT, Stop date: 08/22/19 7:23:00 CDT Calcium 2020-0 No 1,000 mL, Memor ia Chloride 08-21 Rate: 75 l 0.0014 11:45: ml/hr, Chucho MEQ/ML / 00 Infuse Potassium over: 13.3 Chloride hr, Route: 0.004 IV, Dosing MEQ/ML / Weight Sodium 63.636 kg, Chloride Total 0.103 Volume: MEQ/ML / 1,000, Sodium Start Lactate date: 0.028 20 MEQ/ML 6:45:00 Injectable CDT, Solution Duration: 30 day, Stop date: 09/21/19 6:44:00 CDT, 1.69, m2, 0 Calcium 2020-0 No 1,000 mL, Memor ia Chloride 08-21 Rate: 75 l 0.0014 11:40: ml/hr, [place] MEQ/ML / 00 Infuse Potassium over: 13.3 Chloride hr, Route: 0.004 IV, Dosing MEQ/ML / Weight Sodium 63.636 kg, Chloride Total 0.103 Volume: MEQ/ML / 1,000, Sodium Start Lactate date: 0.028 20 MEQ/ML 6:40:00 Injectable CDT, Solution Duration: 30 day, Stop date: 09/21/19 6:39:00 CDT, 1.69, m2, 0 Lactated 2020-0 No 1,000 mL, [place] Ringers IV -15 Rate: 40 l 1,000 mL 11:16: ml/hr, [place] 00 Infuse over: 25 hr, Route: IV, Dosing Weight 63.636 kg, Total Volume: 1,000, Start date: 08/22/19 6:16:00 CDT, Duration: 30 day, Stop date: 09/21/19 6:15:00 CDT, 1.69, m2, 0 Tramadol No 50 mg, PO, Mem oria 6-11 Q4-6H, PRN l 15:59: Pain, # 20 [place] 00 tab, 0 Refill(s) Famotidine Yes 20 mg = 1 Me moria 20 MG Oral 6-11 tab, PO, l Tablet 15:59: PRN, 0 [place] 00 Refill(s) Vital Signs Vital Name Observation Time Observation Value Comments Source Respitory Rate 2019-08-22 15:40:00 Memori al [place] Systolic (mm Hg) 2019-08-22 15:40:00 Glen rial [place] Diastolic (mm Hg) 2019-08-22 15:40:00 Mem orial [place] Respitory Rate 2019-08-22 15:25:00 Memori al [place] Systolic (mm Hg) 2019-08-22 15:25:00 Glen rial [place] Diastolic (mm Hg) 2019-08-22 15:25:00 Mem orial [place] Respitory Rate 2019-08-22 15:09:00 Memori al [place] Systolic (mm Hg) 2019-08-22 15:09:00 Glen [place] Diastolic (mm Hg) 2019-08-22 15:09:00 Mem orial [place] Height 2019-08-18 15:56:00 157.48 cm [facility] Weight 2019-08-18 15:56:00 [facility] BMI Calculated 2019-08-18 15:56:00 Memori al [place] Procedures This patient has no known procedures. Encounters Start End Encounter Admission Attending Care Care Encounter Source Date/Time Date/Time Type Type Clinicians Facility Department ID 2019-08-22 2019-08-[address] [id number] 05:24:00 10:55:00 Yang L 00 2019-08-22 2019-08-22 Outpatient [facility]SY [id number] [facility] 05:24:00 05:24:00 Results Test Description Test Time Test Comments Results Result Sourc e Comments URINE CHEM 2019-08-22 Negative [facility] 11:17:00 (08/22/19 6:17 Chucho AM) IMMUNOLOGY 2019-08-19 Not Detected [facility] 19:56:00 (08/19/19 2:56 Chucho )
[2019-10-17 23:07] LABS: Absolute Lymphocytes (CBC) 1.1 K/uL (0.7-4.9); Basophils % 0.6 % (0-1.3); Hematocrit 40.1 % (36.0-45.0); Lymphocytes % 12.4 % (15.3-44.8); MPV 8.2 fL (7.6-11.3); RBC Red Blood Cell Count 4.67 M/uL (3.86-4.86)
[2019-10-17 23:20] LABS: ALT/SGPT 29 U/L (12-78); AST/SGOT 18 U/L (15-37); Albumin 4.2 g/dL (3.4-5.0); Alkaline Phosphatase 112 U/L (45-117); BUN Blood Urea Nitrogen 12 mg/dL (7-18); Bicarbonate 29 mmol/L (21-32); Bilirubin Direct < 0.1 mg/dL (0-0.2); Bilirubin Total 0.3 mg/dL (0.2-1.0); Glucose Level 83 mg/dL (74-106); Lipase 126 U/L (73-393); Potassium 3.7 mmol/L (3.5-5.1); Protein, Total 8.8 g/dL (6.4-8.2); Sodium Level 141 mmol/L (136-145)
[2019-10-18 00:13] LABS: Urine Culture Reflex Order REFLEXED; Urine Mucus 1+ /HPF (NONE SEEN)
[2019-10-18 00:14] LABS: Urine Amorphous Sediment 2+ /HPF (NONE SEEN); Urine Bacteria <20 /HPF (<20); Urine RBC <5 /HPF (NONE SEEN)
[2019-10-18] MEDS ORDERED: ONDANSETRON 4 MG/2 ML VIAL ONE (00:45)
--- NOTE | 2019-10-18 00:48 | EDPHYS ---
Physician Documentation [facility] Name: Seema Roa Age: 24 yrs Sex: Female : 1995 Arrival Date: 10/17/2019 Time: 21:49 Bed 7 Private MD: ED Physician Taran Chilel HPI: 10/16 22:40 This 24 yrs old Black Female presents to ER via Ambulatory with complaints of Abdominal jr8 Pain. 22:40 The patient presents with abdominal pain right lower quadrant. Onset: The jr8 symptoms/episode began/occurred gradually, 2 week(s) ago, and became worse and became persistent. The symptoms radiate to right back. Associated signs and symptoms: none. The symptoms are described as stabbing. Modifying factors: The symptoms are alleviated by nothing, the symptoms are aggravated by nothing. Severity of pain: At its worst the pain was moderate in the emergency department the pain is unchanged. The patient has not experienced similar symptoms in the past. The patient has not recently seen a physician. 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 - Social history:: Smoking status: Patient denies any tobacco usage or history of. ROS: 22:40 Eyes: Negative for injury, pain, redness, and discharge, ENT: Negative for injury, jr8 pain, and discharge, Neck: Negative for injury, pain, and swelling, Cardiovascular: Negative for chest pain, palpitations, and edema, Respiratory: Negative for shortness of breath, cough, wheezing, and pleuritic chest pain, Back: Negative for injury and pain, MS/Extremity: Negative for injury and deformity, Skin: Negative for injury, rash, and discoloration, Neuro: Negative for headache, weakness, numbness, tingling, and seizure. 22:40 Abdomen/GI: Positive for abdominal pain, Negative for nausea, vomiting, and diarrhea, constipation. Exam: 22:40 Constitutional: This is a well developed, well nourished patient who is awake, alert, jr8 and in no acute distress. Cardiovascular: Regular rate and rhythm with a normal S1 and S2. No gallops, murmurs, or rubs. Normal PMI, no JVD. No pulse deficits. Respiratory: Lungs have equal breath sounds bilaterally, clear to auscultation and percussion. No rales, rhonchi or wheezes noted. No increased work of breathing, no retractions or nasal flaring. Back: No spinal tenderness. No costovertebral tenderness. Full range of motion. Skin: Warm, dry with normal turgor. Normal color with no rashes, no lesions, and no evidence of cellulitis. MS/ Extremity: Pulses equal, no cyanosis. Neurovascular intact. Full, normal range of motion. Neuro: Awake and alert, GCS 15, oriented to person, place, time, and situation. Cranial nerves II-XII grossly intact. Motor strength 5/5 in all extremities. Sensory grossly intact. Cerebellar exam normal. Normal gait. 22:40 Abdomen/GI: Inspection: abdomen appears normal, Bowel sounds: active, all quadrants, Palpation: soft, in all quadrants, moderate abdominal tenderness, in the right lower quadrant, mass, is not appreciated, rebound tenderness, is elicited in all quadrants, voluntary guarding, is not appreciated, involuntary guarding, is elicited in all quadrants, no appreciated organomegaly, Indicators: McBurney's point is not tender, Sarmiento's sign is negative, Rovsing's sign is negative, Liver: tenderness, is not appreciated. Vital Signs: 22:07 BP 124 / 86; Pulse 99; Resp 14 S; Temp 98.2(O); Pulse Ox 100% on R/A; Weight 60.78 kg bb (R); Height 5 ft. 2 in. (157.48 cm) (R); Pain 6/10; 23:00 BP 95 / 72; Pulse 84; Resp 16; Pulse Ox 97% on R/A; jb4 10/17 00:30 BP 125 / 83; Pulse 86; Resp 16; Temp 98.5(O); Pulse Ox 100% on R/A; Pain 6/10; jb4 10/16 22:07 Body Mass Index 24.51 (60.78 kg, 157.48 cm) bb MDM: 10/16 22:[address] [facility] [place] [facility] 10/17 00:46 Data reviewed: vital signs, nurses notes, lab test result(s), radiologic studies, CT jr8 scan. Data interpreted: Pulse oximetry: on room air is 100 %. Interpretation: normal. Counseling: I had a detailed discussion with the patient and/or guardian regarding: the historical points, exam findings, and any diagnostic results supporting the discharge/admit diagnosis, lab results, radiology results, the need for outpatient follow up, a family practitioner, a cap maker, to return to the emergency department if symptoms worsen or persist or if there are any questions or concerns that arise at home. Response to treatment: the patient's symptoms have mildly improved after treatment. Special discussion: Based on the patient's Hx, exam, and Dx evaluation, there is no indication for emergent surgery or inpatient Tx. It is understood by the patient/guardian that if the Sx's persist or worsen they need to return immediately for re-evaluation. 10/16 22:04 Order name: Basic Metabolic Panel [facility] 10/16 22:04 Order name: CBC with Diff [facility] 10/16 22:04 Order name: Hepatic Function [facility] 10/16 22:04 Order name: Lipase [facility] 10/16 22:04 Order name: Urine Microscopic Only [facility] 10/16 22:54 Order name: Urine --Ancillary (enter results) [facility] 10/16 22:38 Order name: CT Abd/Pelvis - IV Contrast Only [facility] 10/16 22:54 Order name: Urine Dipstick--Ancillary (enter results) [facility] 10/16 23:08 Order name: CBC with Automated Diff; Complete Time: 23:11 [facility] [place] 10/16 23:21 Order name: Basic Metabolic Panel; Complete Time: 23:22 [facility] [place] 10/16 23:21 Order name: Liver (Hepatic) Function; Complete Time: 23:22 [facility] [place] 10/16 23:21 Order name: Lipase; Complete Time: 23:22 [facility] [place] 10/17 00:15 Order name: Urine Microscopic Only; Complete Time: 00:25 [facility] [place] 10/16 22:04 Order name: IV Saline Lock; Complete Time: :59 [facility] 10/16 22:04 Order name: Labs collected and sent; Complete Time: :59 [facility] 10/16 22:04 Order name: Urine Test (obtain specimen); Complete Time: :59 [facility] 10/16 22:04 Order name: Urine Dipstick-Ancillary (obtain specimen); Complete Time: :59 jr8 Administered Medications: 00:43 Drug: Zofran (Ondansetron) 4 mg Route: IVP; Site: right antecubital; jb4 01:10 Follow up: Response: No adverse reaction jb4 00:45 Drug: morphine 4 mg Route: IVP; Site: right antecubital; jb4 01:10 Follow up: Response: No adverse reaction; Pain is decreased; RASS: Alert and Calm (0) jb4 01:05 Drug: TORadol - Ketorolac 15 mg Route: IVP; Site: right antecubital; jb4 01:10 Follow up: Response: No adverse reaction; Medication administered at discharge. jb4 Disposition: 09:42 Co-signature as Attending Physician, Taran Chilel MD I agree with the assessment and elvis plan of care. Disposition: 10/18/19 00:47 Discharged to Home. Impression: Lower abdominal pain, unspecified. - Condition is Stable. - Discharge Instructions: Abdominal Pain, Adult. - Medication Reconciliation Form, Thank You Letter, Antibiotic Education, Prescription Opioid Use form. - Follow up: Ernesto Juarez MD; When: 5 - 6 days; Reason: Recheck today's complaints, Continuance of care, Re-evaluation by your physician. - Problem is new. - Symptoms have improved. Signatures: Dispatcher [employer] EDTaran Pollard MD MD cha Ballard, Brenda, RN RN Travis Diallo PA PA jr8 Todd Shields RN RN jb4 Corrections: (The following items were deleted from the chart) 01:11 00:47 10/18/2019 00:47 Discharged to Home. Impression: Lower abdominal pain, jb4 unspecified. Condition is Stable. Forms are Medication Reconciliation Form, Thank You Letter, Antibiotic Education, Prescription Opioid Use. Follow up: Ernesto Juarez; When: 5 - 6 days; Reason: Recheck today's complaints, Continuance of care, Re-evaluation by your physician. Problem is new. Symptoms have improved. jr8
--- NOTE | 2019-10-18 00:48 | ER ---
Nurse's Notes [facility] Name: Seema Rao Age: 24 yrs Sex: Female : 1995 Arrival Date: 10/17/2019 Time: 21:49 Bed 7 Private MD: Diagnosis: Lower abdominal pain, unspecified Presentation: 10/16 22:07 Chief complaint: Patient states: she had a cholecystectomy August 22 and since then she bb has had intermittent abdominal pain then approx a week ago she started having low back pain which is also radiating down her right leg she denies vomiting, diarrhea, fever or urinary symptoms. Coronavirus screen: At this time, the client does not indicate any symptoms associated with coronavirus-19. Ebola Screen: No symptoms or risks identified at this time. Initial Sepsis Screen: Does the patient meet any 2 criteria? No. Patient's initial sepsis screen is negative. Does the patient have a suspected source of infection? No. Patient's initial sepsis screen is negative. Risk Assessment: Do you want to hurt yourself or someone else? Patient reports no desire to harm self or others. Onset of symptoms was August 2019. 22:07 Method Of Arrival: Ambulatory bb 22:07 Acuity: MARY ANNE 3 bb Triage Assessment: 22:12 General: Appears in no apparent distress. Behavior is calm, cooperative. 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 - Social history:: Smoking status: Patient denies any tobacco usage or history of. Screenin:00 Abuse screen: Denies threats or abuse. Nutritional screening: No deficits noted. jb4 Tuberculosis screening: No symptoms or risk factors identified. Fall Risk None identified. Assessment: 22:00 General: Appears in no apparent distress. comfortable, Behavior is calm, cooperative, jb4 appropriate for age. Pain: Complains of pain in right lower quadrant Pain radiates to right low back Pain currently is 2 out of 10 on a pain scale. Quality of pain is described as crampy, stabbing, Pain began 2-3 days ago. Neuro: Level of Consciousness is awake, alert, obeys commands, confused, Oriented to person, place, time, situation. Cardiovascular: Patient's skin is warm and dry. Respiratory: Airway is patent Respiratory effort is even, unlabored, Respiratory pattern is regular, symmetrical. GI: Abdomen is flat, non-distended, Bowel sounds present X 4 quads. Abd is soft and non tender X 4 quads. : No signs and/or symptoms were reported regarding the genitourinary system. EENT: Derm: Skin is intact, Skin is pink, warm \T\ dry. Musculoskeletal: Circulation, motion, and sensation intact. Range of motion: intact in all extremities. 23:00 Reassessment: No changes from previously documented assessment. Patient and/or family jb4 updated on plan of care and expected duration. Pain level reassessed. Patient is alert, oriented x 3, equal unlabored respirations, skin warm/dry/pink. 10/17 00:26 Reassessment: Patient and/or family updated on plan of care and expected duration. Pain jb4 level reassessed. Patient is alert, oriented x 3, equal unlabored respirations, skin warm/dry/pink. Pt back from CT, ambulated to restroom and back to bed. 01:08 Reassessment: Patient and/or family updated on plan of care and expected duration. Pain jb4 level reassessed. Patient is alert, oriented x 3, equal unlabored respirations, skin warm/dry/pink. Pt verbalized understanding of D/c and follow up instructions. Denies questions or concerns. Ambulated out of ED with steady gait. Vital Signs: 10/16 22:07 BP 124 / 86; Pulse 99; Resp 14 S; Temp 98.2(O); Pulse Ox 100% on R/A; Weight 60.78 kg bb (R); Height 5 ft. 2 in. (157.48 cm) (R); Pain 6/; 23:00 BP 95 / 72; Pulse 84; Resp 16; Pulse Ox 97% on R/A; jb4 10/17 00:30 BP 125 / 83; Pulse 86; Resp 16; Temp 98.5(O); Pulse Ox 100% on R/A; Pain 6/10; jb4 10/16 22:07 Body Mass Index 24.51 (60.78 kg, 157.48 cm) ED Course: 10/16 21:49 Patient arrived in ED. cl3 22:00 Taran Chilel MD is Attending Physician. elvis 22:00 Travis Jewell [facility]. jr8 22:00 Patient has correct armband on for positive identification. Bed in low position. Call jb4 light in reach. Side rails up X 1. Pulse ox on. NIBP on. 22:11 Triage completed. bb 22:12 Arm band placed on Patient placed in an exam room, on a stretcher, on pulse oximetry. bb 22:54 Inserted saline lock: 20 gauge in right antecubital area, using aseptic technique. oe Blood collected. 22:59 Todd Shields, RN is Primary Nurse. jb4 23:11 Radiology exam delayed due to lab results not completed at this time. (BUN/Creatinine). kw1 08 00:47 Ernesto Juarez MD is Referral Physician. jr8 01:08 No provider procedures requiring assistance completed. IV discontinued, intact, jb4 bleeding controlled, No redness/swelling at site. Pressure dressing applied. Administered Medications: 00:43 Drug: Zofran (Ondansetron) 4 mg Route: IVP; Site: right antecubital; jb4 01:10 Follow up: Response: No adverse reaction jb4 00:45 Drug: morphine 4 mg Route: IVP; Site: right antecubital; jb4 01:10 Follow up: Response: No adverse reaction; Pain is decreased; RASS: Alert and Calm (0) jb4 01:05 Drug: TORadol - Ketorolac 15 mg Route: IVP; Site: right antecubital; jb4 01:10 Follow up: Response: No adverse reaction; Medication administered at discharge. jb4 Outcome: 00:47 Discharge ordered by . jr8 01:08 Discharged to home ambulatory. jb4 01:08 Condition: stable 01:08 Discharge instructions given to patient, Instructed on discharge instructions, follow up and referral plans. Demonstrated understanding of instructions, follow-up care. 01:11 Patient left the ED. jb4 Signatures: Taran Chilel MD MD cha Ballard, Brenda RN RN Travis Diallo PA PA jr8 Todd Shields, JUJU MATUTE jb4 Hernán Marroquin oe Lisa Woo kw1 Breann Diaz cl3
[2019-10-18] MEDS ORDERED: MORPHINE 4 MG/ML SYR ONE (00:49)
[2019-10-18] MEDS ORDERED: KETOROLAC 30 MG/ML INJ ONE (01:08)
[2019-10-18 01:19] VITALS: BP 125/83; TEMP 98.5; O2SAT 100
[2019-10-18 11:01] LABS: Urine Blood 2+ (NEG); Urine Glucose NEGATIVE (NEG); Urine Protein NEGATIVE (NEG); Urine Specific Gravity >1.030 (1.005-1.030)
--- NOTE | 2019-10-18 12:23 | RAD REPORT ---
EXAM DESCRIPTION: CT - Abdomen Pelvis W Contrast - 10/18/2019 1:35 am CLINICAL HISTORY: The patient is 24 years old and is Female; abdominal pain TECHNIQUE: Axial computed tomography images of the abdomen and pelvis with intravenous contrast. S agittal and coronal reformatted images were created and reviewed. This CT exam was performed using one or more of the following dose reduction techniques: automated exposure control, adjustment of t he mA and/or kV according to patient size, and/or use of iterative reconstruction technique. COMPARISON: CT of the abdomen and pelvis August 23, 2019 FINDINGS: LUNG BASES: Unremarkable. No mass. No consolidation. ABDOMEN: LIVER: Unremarkable. No mass. GALLBLADDER AND BILE DUCTS: No calcified stones. No ductal dilation. PANCREAS: No ductal dilation. No mass. SPLEEN: Unremarkable. ADRENALS: Unremarkable. No mass. KIDNEYS AND URETERS: Unremarkable. The kidneys enhance symmetrically. No obstructing renal or ure teral calculus is seen. No hydronephrosis or hydroureter. No perinephric fluid or stranding. STOMACH AND BOWEL: The stomach is well distended with food contents. The small bowel is normal i n caliber. Stool is present throughout the colon. There is no mucosal thickening or evidence of bowel obstruction. PELVIS: APPENDIX: The appendix is normal in caliber without surrounding inflammation. BLADDER: The bladder is moderately distended. REPRODUCTIVE: Unremarkable as visualized. ABDOMEN and PELVIS: INTRAPERITONEAL SPACE: Trace free fluid is present within the pelvis which is likely physiologic . No free air. BONES/JOINTS: No acute fracture. SOFT TISSUES: The soft tissues are normal. VASCULATURE: Unremarkable. No abdominal aortic aneurysm. LYMPH NODES: Unremarkable. No enlarged lymph nodes. IMPRESSION: No acute findings on this contrasted CT of the abdomen and pelvis to explain the patient's symptom s. Electronically signed by: Heather Wilburn MD 10/18/2019 12:31 AM CDT Due to temporary technical issues with the PACS/Fluency reporting system, reports are being signed by the in house radiologist without review as a courtesy to ensure prompt reporting. The interpreting r adiologist is fully responsible for the content of the report.
== END 2019-10-18 01:11 | disposition home or self-care (01) ==
LOC: ER 21:49
DX: R10.31 Right lower quadrant pain (principal)
CPT/HCPCS: 87088; 85025; 87086; 80048; 36415; 81025; 80076; 83690; 74177; Q9967; J2405; 81003; 81015; 96374; 96375; 99284

== ENCOUNTER 2021-10-07 16:39 | Emergency (ER) | payer OTHER ==
[2021-10-07 18:43] LABS: Urine Blood Negative (Negative); Urine Glucose Negative (Negative); Urine Protein Negative (Negative); Urine Specific Gravity 1.025 (1.005-1.030)
[2021-10-07 19:02] LABS: Absolute Lymphocytes (CBC) 1.6 K/uL (0.7-4.9); Hematocrit 41.5 % (36.0-45.0); Lymphocytes % 13.4 % (15.3-44.8); MCV 88.8 fL (80-100); MPV 7.6 fL (7.6-11.3); RBC Red Blood Cell Count 4.67 M/uL (3.86-4.86)
[2021-10-07 19:03] LABS: Urine Specific Gravity/Preg 1.025 (1.005-1.030)
[2021-10-07 19:07] LABS: Urine Bacteria <20 /HPF (<20); Urine RBC <5 /HPF (None Seen)
[2021-10-07 19:08] LABS: Urine Mucus 1+ /HPF (None Seen)
[2021-10-07] MEDS ORDERED: KETOROLAC 30 MG/ML INJ ONE (19:08)
[2021-10-07 19:19] LABS: Albumin 4.3 g/dL (3.4-5.0); Bilirubin Total 0.3 mg/dL (0.2-1.0); Potassium 3.6 mmol/L (3.5-5.1); Protein, Total 8.6 g/dL (6.4-8.2)
--- NOTE | 2021-10-07 20:45 | RAD REPORT ---
EXAM DESCRIPTION: CTAbdomen Pelvis W Contrast - 10/07/2021 8:30 pm CLINICAL HISTORY: Abdominal pain. RLQ abdominal pain COMPARISON: Abdomen Pelvis W Contrast dated 10/18/2019; Abdomen Pelvis W Contrast dated 08/23/2019 TECHNIQUE: Biphasic CT imaging of the abdomen and pelvis was performed with 100 ml non-ionic IV cont rast. All CT scans are performed using dose optimization technique as appropriate and may include automated exposure control or mA/KV adjustment according to patient size. FINDINGS: The lung bases are clear.Cholecystectomy clips. The liver, spleen, pancreas, adrenal glands and kidneys are within normal limits. No bowel obstruction, free air, intra-abdominal free fluid or abscess. Small volume pelvic free fluid . The appendix is normal. No evidence of significant lymphadenopathy. No suspicious bony findings. IMPRESSION: No acute intra-abdominal or pelvic finding.
[2021-10-07] MEDS ORDERED: METHYLPREDNISOLONE 125 MG INJ ONE (21:12)
[2021-10-07] MEDS ORDERED: DIPHENHYDRAMINE 50 MG/ML VIAL ONE (21:12)
[2021-10-07] MEDS ORDERED: FAMOTIDINE 20 MG/2 ML VIAL IV ONE (21:12)
[2021-10-08 02:18] VITALS: TEMP 98.4
[2021-10-08 02:20] VITALS: BP 125/79; O2SAT 99
--- OUTSIDE RECORDS SUMMARY | 2021-10-08 10:56 | XMS REPORT | Continuity of Care Document ---
:1995 Author Organization [facility] t Address [address] [place] [address] Care Team Providers Name Role Phone Unknown, Attending Attending Clinician Unavailable Job Reyes Attending Clinician JOB ZULUAGA Attending Clinician Unavailable MARA MCMULLEN Attending Clinician Unavailable Payers Payer Name Policy Type Policy Number Effective Date Expiration Date S ource Problems This patient has no known problems. Allergies, Adverse Reactions, Alerts Allergy Allergy Status Severity Reaction(s) Onset Inactive Treating Comm ents Source Name Type Date Date Clinician NO KNOWN Drug Active Univers ALLERGIE Class ity of S [facility] Social History Social Habit Start Date Stop Date Quantity Comments Source Sex Assigned At Uni versity [facility] Exposure to SARS-CoV-2 Not sure [facility] [place] (event) [facility] Smoking Status Start Date Stop Date Source Unknown if ever smoked Universit y [facility] Medications Ordered Filled Start Stop Current Ordering Indication Dosage Frequency Signature Comments Components Source Medication Medication Date Date Medication? Clinician (SIG) Name Name NaCl 0.9% 2020-0 2020- No 1000mL at 999 Uni vers (NS) bolus 8-16 08-16 mL/hr, ity of infusion 00:30: 02:31 1,000 mL, Sawyer as 1,000 mL 00 :00 IV Medical Infusion, Branch ONCE, 1 dose, 10/22/19 at 1930, OSMAR ondansetron 2020-0 Yes [id number] 4mg Take 1 Univers (ZOFRAN) 4 8-15 tablet by ity of mg tablet 00:00: mouth [place] 00 every 8 Medical (eight) Branch hours as needed for Nausea and Vomiting (N/V) for up to 15 doses. ondansetron Yes [id number] 4mg Take 1 Univers (ZOFRAN) 4 8-15 tablet by ity of mg tablet 00:00: mouth [place] 00 every 8 Medical (eight) Branch hours as needed for Nausea and Vomiting (N/V) for up to 15 doses. Vital Signs Vital Name Observation Time Observation Value Comments Source Systolic blood 2019-10-23 02:00:00 124 mm[Hg] [facility] Diastolic blood 2019-10-23 02:00:00 77 mm[Hg] [facility] [place], operated by [facility] Heart rate 2019-10-23 02:00:00 86 /min [facility] Respiratory rate 2019-10-23 02:00:00 17 /min [facility] Oxygen saturation in 2019-10-23 01:00:00 98 /min [facility] Arterial blood by [facility] Pulse oximetry Branch Body temperature 2019-10-23 00:18:00 37.56 Dianna [facility] Body height 2019-10-23 00:18:00 157.5 cm [facility] Body weight 2019-10-23 00:18:00 60.782 kg [facility] BMI 2019-10-23 00:18:00 24.51 kg/m2 [facility] Procedures Procedure Date / Time Performed Performing Clinician Sourc e XR CHEST 1 VW 2019-10-23 00:53:[address] [facility] LIPASE 2019-10-23 00:32:[address] [facility] TROPONIN I 2019-10-23 00:32:[address] [facility] COMP. METABOLIC PANEL 2019-10-23 00:32:00 Job Zuluaga [facility] ([id number]) [facility] CBC WITH DIFF 2019-10-23 00:32:[address] [facility] URINALYSIS 2019-10-23 00:32:[address] [facility] EKG-12 LEAD 2019-10-23 00:27:[address] [facility] NOTICE OF PRIVACY 2019-10-23 00:07:39 Doctor Unassigned, No [facility] PRACTICES Name [facility] CONSENT/REFUSAL FOR 2019-10-23 00:07:23 Doctor Unassigned, No [facility] DIAGNOSIS AND Name [facility] TREATMENT Encounters Start End Encounter Admission Attending Care Care Encounter Source Date/Time Date/Time Type Type Clinicians Facility Department ID 2019-10-25 2019-10-25 Telephone Unknown, [facility] [id number] Univers 00:00:00 00:00:00 Attending SPECIALTY [id number] ity of [facility] [id number] [facility] AT [phone] Ri jair RAJPUT 072 [facility] 2019-10-22 2019-10-22 Emergency [place], [facility] [id number] Univers 19:23:00 21:49:00 Job Munoz [id number] [facility] of [place] [id number] [facility] [phone] [facility] thomas 084 [place] 2019-10-22 2019-10-22 Emergency X CACACE, [facility] ERT [id number] Univers 19:05:00 19:05:00 JOB swanson [facility] 2019-08-22 2019-08-22 Outpatient BENEDICT, MERLIN SISSY [id number] [facility]BL 05:24:00 10:55:00 MARA Results Test Description Test Time Test Comments Results Result Sourc e Comments Chest 1 View 2019-10-08 No acute University o f 6 cardiopulmonary [place] Med ical 02:25:48 abnormality. [place] Preliminary Report Dictated by Resident: Casey Khanna MD., have reviewed this study and agree with theabove report.Down EXAM: XR CHEST 1 VW COMPARISON: None. TECHNIQUE: A single AP and lateral radiographs of the of the chest wereobtained. HISTORY: chest pain FINDINGS: Lungs: The lungs are clear. No pleural effusion or pneumothorax isidentified. Heart/Mediastinum: The cardiomediastinal silhouette is normal in size. Bones: No acute osseous abnormality is seen. Cholecystectomy clips overlie the right upper quadrant. [facility], Radiant Results Inft 10/22/2019 9:26 PM CDTDown EXAM: XR CHEST 1 VWCOMPARISON: None.TECHNIQUE: A single AP and lateral radiographs of the of the chest wereobtained.HISTORY: chest pain FINDINGS:Lungs: The lungs are clear. No pleural effusion or pneumothorax isidentified.Heart/Me diastinum: The cardiomediastinal silhouette is normal in size.Bones: No acute osseous abnormality is seen.Cholecystectomy clips overlie the right upper quadrant.IMPRESSIONNo acute cardiopulmonary abnormality.Prelimina ry Report Dictated by Resident: Casey Smith MD., have reviewed this study and agree with theabove report. Troponin I 2019-10-23 02:11:00 Test Item Value Reference Range Interpretation Comme nts TROPONIN I (test code = <0.012 See_Comment [Au tomated message] The 0880514683) system which [employer] nerated this result tra nsmitted reference range : <=0.034 ng/mL. The refe rence range was not u sed to interpret this result as normal/abnormal . JESSICA (test code = JESSICA) Equal or Less than 0.034 ng/ml---Normal ?Note: Cardiac troponin begins to rise 3-4 hours after the onset of ischemia. Repeat in 4-6 hours if the sample was drawn within 3-4 hours of the onset of the symptom and found normal. Between 0.035 and 0.120 ng/mL--- Borderline. Questionable myocardial injury or necrosis ? ?Note: Serial measurement may be necessary to confirm or exclude the diagnosis of myocardial injury or necrosis; Clinical correlation (symptoms, EKGs, imaging studies, and others) required; Repeat in 4-6 hours if clinically indicated. ? Equal or Higher than 0.121 ng/mL---Abnormal. Myocardial Injury or Necrosis Likely ? Biotin has been reported to cause a negative bias, interpret results relative to patient's use of biotin. ? Lab Interpretation (test Normal code = 96617-5) [facility] [id number] 02:00:00 Test Item Value Reference Range Interpretation Comments LIPASE (test code = 2112874660) 93 U/L 0-220 Lab Interpretation (test code = Normal 49486-0) [facility]OLIC PAN[facility] ([id number])2019-10-23 02:00:00 Test Item Value Reference Range Interpretation Comments NA (test code = 137 mmol/L 135-145 2418238117) K (test code = 3.9 mmol/L 3.5-5 4598371013) CL (test code = 106 mmol/L 98-108 2677427004) CO2 TOTAL (test code = 25 mmol/L 23-31 3730268995) AGAP (test code = 2-16 6772882905) BUN (test code = 12 mg/dL 7-23 1192076720) GLUCOSE (test code = 99 mg/dL 70-110 3461863109) CREATININE (test code 0.59 mg/dL 0.5-1.04 = 2526720648) TOTAL BILI (test code 0.3 mg/dL 0.1-1.1 = 5179488226) CALCIUM (test code = 9.4 mg/dL 8.6-10.6 9297298268) T PROTEIN (test code = 7.7 g/dL 6.3-8.2 2628131225) ALBUMIN (test code = 4.3 g/dL 3.5-5 9234245472) ALK PHOS (test code = 79 U/L 34-122 9149688542) ALTv (test code = 18 U/L 5-35 1742-6) AST(SGOT) (test code = 25 U/L 13-40 0194557148) eGFR Calculation mL/min/1.73m2 (Non-) (test code = 8573166134) eGFR Calculation mL/min/1.73m2 () (test code = 6805837143) JESSICA (test code = JESSICA) Association of Glomerular Filtration Rate (GFR) and Staging of Kidney Disease* + -+ + ---+| GFR (mL/min/1.73 m2) ?| With Kidney Damage ?| ?Without Kidney Damage+ -------+ ------+ ---------+| ?>90 ?| ?Stage one ?| ? Normal ?+ --+ -+ ----+| ?60-89 ?| ?Stage two ?| ? Decreased GFR ? + -+ + ---+| ?30-59 ?| ?Stage three ?| ? Stage three ? + -+ + ---+| ?15-29 ?| ?Stage four ? | ? Stage four ?+ --+ -+ ----+| ?<15 (or dialysis) ? ?| ?Stage five ? | ? Stage five ?+ --+ -+ ----+ *Each stage assumes the associated GFR level has been in effect for at least three months. ?Stages 1 to 5, with or without kidney disease, indicate chronic kidney disease. Notes: Determination of stages one and two (with eGFR >59mL/min/1.73 m2) requires estimation of kidney damage for at least three months as defined by structural or functional abnormalities of the kidney, manifested by either:Pathological abnormalities or Markers of kidney damage (including abnormalities in the composition of the blood or urine or abnormalities in imaging tests). [facility]00 Test Item Value Reference Range Interpretation Comments APPEARANCE (test code = Cloudy Clear A 1001660508) COLOR (test code = Yellow Yellow 8783820297) PH (test code = 4.8-8.0 8187136821) SP GRAVITY (test code = 1.003-1.030 9564488085) GLU U QUAL (test code = Normal Normal 0228136660) BLOOD (test code = Negative Negative 0232395902) KETONES (test code = Negative Negative 6943665095) PROTEIN (test code = Negative Negative 2887-8) UROBILIN (test code = Normal Normal 6048546793) BILIRUBIN (test code = Negative Negative 0992929289) NITRITE (test code = Negative Negative 6323100426) LEUK UTE (test code = Negative Negative 5742737293) RBC/HPF (test code = See_Comment [Autom ated message] 5280497519) The system [employer] generated this result transmitted ref erence range: 0 - 3 HP F. The reference range was not used to int erpret this result as normal/abnormal . WBC/HPF (test code = See_Comment [Autom ated message] 8372542075) The system [employer] generated this result transmitted ref erence range: 0 - 5 HP F. The reference range was not used to int erpret this result as normal/abnormal . BACTERIA (test code = Few Negative A 7416052642) MUCOUS (test code = Moderate Negative LPF A 1130742324) SQ EPITH (test code = HPF 9610041154) Lab Interpretation (test Abnormal code = 72896-0) [facility] with [id number] 00:59:00 Test Item Value Reference Range Interpretation Comments WBC (test code = See_Comment [Automated 6690-2) message] The sy stem which generated this result transmitted reference range : 4.30 - 11.10 10*3/?L. The reference range was not used to interpret this result as normal/abnormal . RBC (test code = See_Comment [Automated 789-8) message] The sy stem which generated this result transmitted reference range : 3.93 - 5.25 10*6/?L. The reference range was not used to interpret this result as normal/abnormal . HGB (test code = 11.8 g/dL 11.6-15 718-7) HCT (test code = 34.9 % 35.7-45.2 L 4544-3) MCV (test code = 86.2 fL 80.6-95.5 787-2) MCH (test code = 29.1 pg 25.9-32.8 785-6) MCHC (test code = 33.8 g/dL 31.6-35.1 786-4) RDW-SD (test code = 44.6 fL 39-49.9 82011-4) RDW-CV (test code = 14.2 % 12-15.5 788-0) PLT (test code = See_Comment H [Automated 777-3) message] The sy stem which generated this result transmitted reference range : 166 - 358 10*3/ ?L. The reference r shubham was not used to interpret this result as normal/abnormal . MPV (test code = 10.0 fL 9.5-12.9 53007-6) NRBC/100 WBC (test See_Comment [Automat ed code = 9688696698) message] The system which generated this result transmitted reference range : 0.0 - 10.0 /100 WBCs. The refer ence range was not u sed to interpret th is result as normal/abnormal . NRBC x10^3 (test code <0.01 See_Comment [Auto mated = 5561705424) message] The s ystem which generated this result transmitted reference range : 10*3/?L. The reference range was not used to interpret this result as normal/abnormal . GRAN MAT (NEUT) % 74.0 % (test code = 770-8) IMM GRAN % (test code 0.10 % = 3601201881) LYMPH % (test code = 15.1 % 736-9) MONO % (test code = 9.1 % 5905-5) EOS % (test code = 1.3 % 713-8) BASO % (test code = 0.4 % 706-2) GRAN MAT x10^3(ANC) 5.15 10*3/uL 1.88-7.09 (test code = 4128709586) IMM GRAN x10^3 (test <0.03 0-0.06 code = 6378805483) LYMPH x10^3 (test code 1.05 10*3/uL 1.32-3.29 L = 731-0) MONO x10^3 (test code 0.63 10*3/uL 0.33-0.92 = 742-7) EOS x10^3 (test code = 0.09 10*3/uL 0.03-0.39 711-2) BASO x10^3 (test code 0.03 10*3/uL 0.01-0.07 = 704-7) Lab Interpretation Abnormal (test code = 50478-1) [facility]"
--- NOTE | 2021-10-08 12:00 | RAD REPORT ---
EXAM DESCRIPTION: US - Transvaginal Study Probe - 10/08/2021 12:00 am CLINICAL HISTORY: 25 years Female right adnexal pain COMPARISON: CT scan dated 10/18/2019 TECHNIQUE: Real-time and dominguez scale transvaginal sonographic imaging was performed to evaluate the p lorie. FINDINGS: The uterus measures 7.5 x 3.7 x 5.5 cm while the endometrial stripe measures 5 mm in thick ness. No discrete endometrial or uterine lesions were delineated. The right ovary measures 1.8 x 2.2 x 1.4 cm while the left ovary measures 1.6 x 2.8 x 2.3 cm. Both ov katie contain small follicles and demonstrate normal vascularity. There is a small amount of free flu id in the cul-de-sac. IMPRESSION: Normal pelvic ultrasound. No ovarian mass or torsion. Electronically signed by: Quin Mosqueda MD 10/07/2021 11:04 PM CDT Due to temporary technical issues with the PACS/Fluency reporting system, reports are being signed by the in house radiologists without review as a courtesy to insure prompt reporting. The interpreting radiologist is fully responsible for the content of the report.
--- NOTE | 2021-10-09 09:52 | EDPHYS ---
Physician Documentation [facility] Name: Seema Rao Age: 25 yrs Sex: Female : 1995 Arrival Date: 10/07/2021 Time: 16:40 Bed 24 Private MD: ED Physician Florentin Barber HPI: 10/07 18:35 This 25 yrs old Black Female presents to ER via Ambulatory with complaints of Abdominal cp Pain - RLQ. 18:35 The patient presents with abdominal pain right lower quadrant. Onset: The cp symptoms/episode began/occurred 3 day(s) ago. The symptoms radiate to right back. Associated signs and symptoms: Pertinent negatives: anorexia, constipation, diarrhea, dysuria, fever, vaginal discharge, vomiting. The symptoms are described as sharp. 18:35 Severity of pain: in the emergency department the pain is unchanged despite home cp interventions. Historical: - PSHx: 16:50 None; murray - Immunization history:: Adult Immunizations up to date. - Social history:: Smoking status: Patient denies any tobacco usage or history of. ROS: 18:40 Constitutional: Negative for body aches, chills, fever, poor PO intake. cp 18:40 Abdomen/GI: Positive for abdominal pain, Negative for vomiting, diarrhea, constipation. cp 18:40 Respiratory: Negative for cough, shortness of breath, wheezing. cp 18:40 Eyes: Negative for injury, pain, redness, and discharge. cp 18:40 ENT: Negative for drainage from ear(s), ear pain, sore throat, difficulty swallowing, difficulty handling secretions. 18:40 Cardiovascular: Negative for chest pain, edema, palpitations. 18:40 Back: Positive for radiated pain. 18:40 : Negative for urinary symptoms, vaginal bleeding, vaginal discharge. 18:40 Neuro: Negative for altered mental status, headache, weakness. 18:40 All other systems are negative. Exam: 18:45 Constitutional: The patient appears in no acute distress, alert, awake, comfortable, cp non-toxic, well developed, well nourished. 18:45 Head/Face: Normocephalic, atraumatic. cp 18:45 Eyes: Periorbital structures: appear normal, Conjunctiva: normal, no exudate, no injection, Sclera: no appreciated abnormality, Lids and lashes: appear normal, bilaterally. 18:45 ENT: External ear(s): are unremarkable, Nose: is normal, Mouth: Lips: moist, Oral mucosa: moist, Posterior pharynx: Airway: no evidence of obstruction, patent. 18:45 Chest/axilla: Inspection: normal. 18:45 Cardiovascular: Rate: normal, Rhythm: regular. 18:45 Respiratory: the patient does not display signs of respiratory distress, Respirations: normal, no use of accessory muscles, no retractions, labored breathing, is not present, Breath sounds: are clear throughout, no decreased breath sounds, no stridor, no wheezing. 18:45 Abdomen/GI: Inspection: abdomen appears normal, Bowel sounds: active, all quadrants, Palpation: soft, in all quadrants, moderate abdominal tenderness, in the right lower quadrant, rebound tenderness, is not appreciated, involuntary guarding, is not appreciated. 18:45 Back: CVA tenderness, is absent. Vital Signs: 16:49 BP 127 / 85; Pulse 86; Resp 17; Temp 97.8; Pulse Ox 99% on R/A; Weight 61.23 kg; Height murray 5 ft. 2 in. (157.48 cm); 20:45 BP 115 / 76; Pulse 80; Resp 21; Temp 98.4(O); Pulse Ox 100% on R/A; wm 22:49 BP 125 / 79; Pulse 90; Resp 16 S; Pulse Ox 99% on R/A; bb 16:49 Body Mass Index 24.69 (61.23 kg, 157.48 cm) murray MDM: 19:00 Differential diagnosis: appendicitis, cholecystitis, Cholelithiasis, Ectopic , cp Ovarian Torsion, Pelvic Inflammatory Disease, Pyelonephritis, Ureterolithiasis, urinary tract infection, colitis. 19:43 Patient medically screened. 22:30 Data reviewed: vital signs, nurses notes, lab test result(s), radiologic studies, CT cp scan, ultrasound. 22:30 Counseling: I had a detailed discussion with the patient and/or guardian regarding: the cp historical points, exam findings, and any diagnostic results supporting the discharge/admit diagnosis, lab results, radiology results, the need for outpatient follow up, a family practitioner, to return to the emergency department if symptoms worsen or persist or if there are any questions or concerns that arise at home. Response to treatment: the patient's symptoms have mildly improved after treatment, and as a result, I will discharge patient. 08 18:34 Order name: CBC with Diff; Complete Time: 19:04 cp 10/07 19:04 Interpretation: Normal except: WBC 11.7; PLT 461; BUSHRA% 79.5; LYM% 13.4; NEUT A 9.3. / 18:34 Order name: CMP; Complete Time: 20:45 cp 10/07 20:45 Interpretation: Normal except: AST 14; TP 8.6; GLOB 4.3; A/G 1.0. cp / 18:34 Order name: Lipase; Complete Time: 20:45 cp 10/07 18:34 Order name: Urine Microscopic Only; Complete Time: 20:45 cp 10/07 20:45 Interpretation: Abnormal: ANGELITA Cx 1+. 10/07 18:43 Order name: Urine --Ancillary (enter results); Complete Time: 19:04 10/07 20:45 Interpretation: Reviewed. 10/07 18:44 Order name: Urine Dipstick-Ancillary; Complete Time: 19:04 EDNC 10/07 19:04 Interpretation: Abnormal: UESTR Trace. 10/07 18:34 Order name: CT Abd/Pelvis - IV Contrast Only; Complete Time: 20:57 cp 10/07 18:34 Order name: IV Saline Lock; Complete Time: 18:44 cp 10/07 19:12 Order name: Urine Culture [facility] 10/07 21:22 Order name: US Transvaginal Study (Probe) 10/07 18:34 Order name: Labs collected and sent; Complete Time: 18:44 cp 10/07 18:34 Order name: Urine Dipstick-Ancillary (obtain specimen); Complete Time: 18:44 10/07 18:34 Order name: Urine Test (obtain specimen); Complete Time: 18:44 cp Administered Medications: 19:04 Drug: Ketorolac 15 mg Route: IVP; Site: left antecubital; iw 22:50 Follow up: Response: No adverse reaction bb 21:07 Drug: SOLU-Medrol (methylPrednisoLONE) 125 mg Route: IVP; Site: left antecubital; bb 22:50 Follow up: Response: Marked relief of symptoms bb 21:10 Drug: Benadryl (diphenhydrAMINE) 25 mg Route: IVP; Site: left antecubital; bb 22:50 Follow up: Response: Marked relief of symptoms bb 21:12 Drug: Pepcid (famotidine) 20 mg Route: IVP; Site: left antecubital; bb 22:50 Follow up: Response: Marked relief of symptoms bb Disposition: 10/08 19:49 Co-signature as Attending Physician, Florentin Barber MD. rn Disposition Summary: 10/07/21 22:31 Discharge Ordered Location: Home cp Problem: new cp Symptoms: have improved cp Condition: Stable cp Diagnosis - Lower abdominal pain, unspecified cp Followup: cp - With: Private Physician - When: 2 - 3 days - Reason: Recheck today's complaints Discharge Instructions: - Discharge Summary Sheet cp - Abdominal Pain, Adult cp Forms: - Medication Reconciliation Form cp - Thank You Letter cp - Antibiotic Education cp - Prescription Opioid Use cp Prescriptions: - Diclofenac Sodium 75 mg Oral Tablet Sustained Release - take 1 tablet by ORAL route 2 times per day; 30 tablet; Refills: 0, Product cp Selection Permitted Signatures: Dispatcher [employer] Daniella Singh RN RN bb Williams, Irene, RN RN iw Nieto, Roman, MD MD rn Page, Corey, PA PA cp Griselda-StagerMary Alice RN RN murray Corrections: (The following items were deleted from the chart) 10/07 20:45 20:45 Normal except. cp cp
--- NOTE | 2021-10-09 09:52 | ER ---
Nurse's Notes [facility] Name: Seema Rao Age: 25 yrs Sex: Female : 1995 Arrival Date: 10/07/2021 Time: 16:40 Bed 24 Private MD: Diagnosis: Lower abdominal pain, unspecified Presentation: 10/07 16:49 Chief complaint: Patient states: pt reports having RLQ abdominal pain x 3days. denies murray N/V/D. Coronavirus screen: Vaccine status: Patient reports receiving the 2nd dose of the covid vaccine. Ebola Screen: Patient denies travel to an Ebola-affected area in the 21 days before illness onset. Initial Sepsis Screen: Does the patient meet any 2 criteria? No. Patient's initial sepsis screen is negative. Does the patient have a suspected source of infection? No. Patient's initial sepsis screen is negative. Risk Assessment: Do you want to hurt yourself or someone else?. Onset of symptoms was October 03, 2021. 16:49 Method Of Arrival: Ambulatory murray 16:49 Acuity: MARY ANNE 3 murray Historical: - PSHx: 16:50 None; murray - Immunization history:: Adult Immunizations up to date. - Social history:: Smoking status: Patient denies any tobacco usage or history of. Screenin:15 Abuse screen: Denies threats or abuse. Nutritional screening: No deficits noted. bb Tuberculosis screening: No symptoms or risk factors identified. Fall Risk None identified. Assessment: 20:15 General: Appears in no apparent distress. Behavior is calm, cooperative. Pain: bb Complains of pain in right lower quadrant. Neuro: Level of Consciousness is awake, alert, obeys commands, Oriented to person, place, time, situation. Cardiovascular: Capillary refill < 3 seconds Patient's skin is warm and dry. Respiratory: Respiratory effort is even, unlabored. GI: Bowel sounds present X 4 quads. Abd is soft X 4 quads Abdomen is tender to palpation in right lower quadrant. Derm: Skin is pink, warm \T\ dry. Musculoskeletal: Circulation, motion, and sensation intact. 20:35 Reassessment: Patient is alert, oriented x 3, equal unlabored respirations, skin bb warm/dry/pink. pt returned from CT c/o itching Taran Page PA notified pt medicated see MAY. 22:49 Reassessment: Patient is alert, oriented x 3, equal unlabored respirations, skin bb warm/dry/pink. pt verbalized understanding of and agrees to plan of care discharge instructions given pt ambulated with steady gait to exit Patient states feeling better. Vital Signs: 16:49 BP 127 / 85; Pulse 86; Resp 17; Temp 97.8; Pulse Ox 99% on R/A; Weight 61.23 kg; Height murray 5 ft. 2 in. (157.48 cm); 20:45 BP 115 / 76; Pulse 80; Resp 21; Temp 98.4(O); Pulse Ox 100% on R/A; wm 22:49 BP 125 / 79; Pulse 90; Resp 16 S; Pulse Ox 99% on R/A; bb 16:49 Body Mass Index 24.69 (61.23 kg, 157.48 cm) murray ED Course: 16:40 Patient arrived in ED. am2 16:42 Taran Walton PA is PHCP. cp 16:42 Florentin Barber MD is Attending Physician. cp 16:50 Triage completed. murray 18:43 Inserted saline lock: 20 gauge in left antecubital area, using aseptic technique. Blood zm collected. 18:44 CBC with Diff Sent. zm 18:44 CMP Sent. zm 18:44 Lipase Sent. zm 18:44 Urine Microscopic Only Sent. zm 18:47 Urine Microscopic Only Sent. kc6 18:47 CBC with Diff Sent. kc6 18:47 CMP Sent. kc6 18:47 Lipase Sent. kc6 20:01 Daniella Barbour, RN is Primary Nurse. bb 20:15 Patient has correct armband on for positive identification. Call light in reach. Side bb rails up X 1. Pulse ox on. NIBP on. Warm blanket given. 20:32 CT Abd/Pelvis - IV Contrast Only In Process Unspecified. EDMS 22:33 US Transvaginal Study (Probe) In Process Unspecified. EDMS 22:51 No provider procedures requiring assistance completed. IV discontinued, intact, bb bleeding controlled, No redness/swelling at site. Pressure dressing applied. Administered Medications: 19:04 Drug: Ketorolac 15 mg Route: IVP; Site: left antecubital; iw 22:50 Follow up: Response: No adverse reaction bb 21:07 Drug: SOLU-Medrol (methylPrednisoLONE) 125 mg Route: IVP; Site: left antecubital; bb 22:50 Follow up: Response: Marked relief of symptoms bb 21:10 Drug: Benadryl (diphenhydrAMINE) 25 mg Route: IVP; Site: left antecubital; bb 22:50 Follow up: Response: Marked relief of symptoms bb 21:12 Drug: Pepcid (famotidine) 20 mg Route: IVP; Site: left antecubital; bb 22:50 Follow up: Response: Marked relief of symptoms bb Medication: 22:51 VIS not applicable for this client. bb Outcome: 22:31 Discharge ordered by MD. cp 22:51 Discharged to home ambulatory. bb 22:51 Condition: stable 22:51 Discharge instructions given to patient, Instructed on discharge instructions, follow up and referral plans. medication usage, Demonstrated understanding of instructions, follow-up care, medications, Prescriptions given X 1. 22:51 Patient left the ED. bb Signatures: Dispatcher [employer] EDDaniella Vigil RN RN bb Williams, Irene, RN RN iw Page, Corey, PA PA cp Moreno, Amanda am2 Marsh, Wendy wm Au-Stager, Heather, RN RN ha Martinez, Zaina zm Campbell, Kaitlyn kc6
== END 2021-10-07 22:51 | disposition home or self-care (01) ==
LOC: ER 16:39
DX: R10.31 Right lower quadrant pain (principal)
CPT/HCPCS: 87088; 85025; 87086; 36415; 81025; 83690; 80053; 74177; 76830; J1200; J2930; J3490; 81003; 81015; 96374; 96375; 99284

== ENCOUNTER 2022-07-28 06:49 | Emergency (ER) | payer OTHER ==
--- OUTSIDE RECORDS SUMMARY | 2022-07-28 06:54 | XMS REPORT | Continuity of Care Document ---
:1995 Author Organization [facility] t Address [address] [facility] [address] [place] [address] Care Team Providers Name Role Phone Norman Mejia Primary Care Physician LUCÍA GIL Attending Clinician Unavailable Ultrasound, Adc Mfm Attending Clinician Unavailable Carmelo Gray MD Attending Clinician CARMELO GRAY Attending Clinician Unavailable NELL CALDWELL Attending Clinician Unavailable Nell Caldwell MD Attending Clinician KOKI JIMENEZ Attending Clinician Unavailable Koki Sawant Attending Clinician Unknown, Attending Attending Clinician Unavailable 2, [facility] Attending Clinician Unavailable Doctor Unassigned, [place] Attending Clinician Unavailable Job Reyes Attending Clinician JOB ELLISON Attending Clinician Unavailable Yang Mcmullen Attending Clinician YANG MCMULLEN Attending Clinician Unavailable Payers Payer Name Policy Type Policy Number Effective Date Expiration Date S ource Problems Condition Condition Condition Status Onset Resolution Last Treating Co mments Source Name Details Category Date Date Treatment Clinician Date High-risk High-risk Disease Active Uni vers 3-08 ity of in second in second 00:00: Agueda currie trimester trimester 00 [facility] History of History of Disease Active U nivers 3-08 ity of delivery, delivery, 00:00: Agueda s currently currently 00 [facility] Branch LAPAROSCOP LAPAROSCO Diagnosis Active 2019-09-27 Memoria IC PIC 08-15 10:58:00 l CHOLECYSTE CHOLECYSTE 00:00: He rmann CTOMY CTOMY 00 Active 08/16/2019 [facility] [place] COVID COVID Diagnosis Active 2019-08-19 Mem oria TESTING TESTING 08-15 14:21:00 l Active 00:00: [place] 08/16/[address] [place], [place] [address]ann UNK UNK Diagnosis Active 2019-08-19 Mem oria Active 08-15 10:08:00 l 08/16/2019 00:00: Carlos n [facility] 00 [place] Allergies, Adverse Reactions, Alerts Allergy Allergy Status Severity Reaction(s) Onset Inactive Treating Comm ents Source Name Type Date Date Clinician NO KNOWN Drug Active Univers ALLERGIE Class ity of S [facility] Social History Social Habit Start Date Stop Date Quantity Comments Source ASSERTION 2022-03-20 [facility] 00:00:00 [facility] Exposure to 2022-07-12 2022-07-[address] [facility]-CoV2 00:00:00 13:59:00 [facility] (event) Branch Alcohol intake 2022-07-14 2022-07-14 Ex-drinker [facility] 00:00:00 00:00:00 (finding) [facility] Tobacco use and 2022-05-14 2022-05-14 Smokeless tobacco Un iversity of exposure 00:00:00 00:00:00 non-user [facility] Social History 2019-08-18 2019-08-18 [facility] sana 15:57:44 15:57:44 Sex [birth year] At [birth year] Universit y of 00:00:00 00:00:00 [facility] Smoking Status Start Date Stop Date Source Tobacco smoking consumption [facility] Branch Never smoked tobacco [facility] Medications Ordered Filled Start Stop Current Ordering Indication Dosage Frequency Signature Comments Components Source Medication Medication Date Date Medication? Clinician (SIG) Name Name ROBIN Yes Take by Univers 102-IRON-FO 5-08 mouth. ity of LATE 15:28: [address] ORAL Branch PN Yes Take by Univers 102-IRON-FO 5-08 mouth. ity of LATE 15:28: [address] ORAL Branch PNV Yes Take by Univers 102-IRON-FO 5-08 mouth. ity of LATE 15:28: [address] ORAL Branch loratadine 2022- Yes [id number] 10mg Take 1 Univers (CLARITIN) 4-17 05-18 tablet by ity of 10 mg 00:00: 04:59 mouth in [place] tablet 00 :00 the [facility] for 30 days. loratadine 2022- Yes [id number] 10mg Take 1 Univers (CLARITIN) 4-17 05-18 tablet by ity of 10 mg 00:00: 04:59 mouth in [place] tablet 00 :00 the [facility] for 30 days. loratadine 2022- Yes [id number] 10mg Take 1 Univers (CLARITIN) 4-17 05-18 tablet by ity of 10 mg 00:00: 04:59 mouth in [place] tablet 00 :00 the [facility] for 30 days. loratadine 2022- Yes [id number] 10mg Take 1 Univers (CLARITIN) 4-17 05-18 tablet by ity of 10 mg 00:00: 04:59 mouth in [place] tablet 00 :00 the [facility] for 30 days. loratadine 2022- Yes [id number] 10mg Take 1 Univers (CLARITIN) 4-17 05-18 tablet by ity of 10 mg 00:00: 04:59 mouth in [place] tablet 00 :00 the [facility] for 30 days. azithromyci Yes [id number] 1000mg Take 2 Univers n 500 mg 3-09 tablets by ity o f tablet 00:00: mouth in [place] 00 the Medical morning. Branch azithromyci 2022-0 Yes [id number] 1000mg Take 2 Univers n 500 mg 3-09 tablets by ity o f tablet 00:00: mouth in [place] 00 the Medical morning. Branch azithromyci 2022-0 Yes [id number] 1000mg Take 2 Univers n 500 mg 3-09 tablets by ity o f tablet 00:00: mouth in [place] 00 the Medical morning. Branch azithromyci 2022-0 Yes [id number] 1000mg Take 2 Univers n 500 mg 3-09 tablets by ity o f tablet 00:00: mouth in [place] 00 the Medical morning. Branch azithromyci 2022-0 Yes [id number] 1000mg Take 2 Univers n 500 mg 3-09 tablets by ity o f tablet 00:00: mouth in [place] 00 the Medical morning. Branch azithromyci 0 Yes [id number] 1000mg Take 2 Univers n 500 mg 3-09 tablets by ity o f tablet 00:00: mouth in [place] 00 the Medical morning. Branch azithromyci 0 Yes [id number] 1000mg Take 2 Univers n 500 mg 3-09 tablets by ity o f tablet 00:00: mouth in [place] 00 the Medical morning. Branch azithromyci 2022- No [id number] 1000mg Take 2 Univers n 500 mg 3-09 04-06 tablets by ity of tablet 00:00: 00:00 mouth in [place] 00 :00 the Medical morning. Branch metroNIDAZO 2022- Yes [id number] 500mg Take 1 Univers LE (FLAGYL) 05-15 tablet by it y of 500 mg 00:00: 04:59 mouth in [place] tablet 00 :00 the Medical morning Branch and 1 tablet in the evening. Do all this for 7 days. metroNIDAZO 2022- Yes [id number] 500mg Take 1 Univers LE (FLAGYL) 05-15 tablet by it y of 500 mg 00:00: 04:59 mouth in [place] tablet 00 :00 the Medical morning Branch and 1 tablet in the evening. Do all this for 7 days. NaCl 0.9% 2019- No 1000mL at 999 Uni vers (NS) bolus 8-16 08-16 mL/hr, ity of infusion 00:30: 02:31 1,000 mL, [place] as 1,000 mL 00 :00 IV Medical Infusion, Branch ONCE, 1 dose, 10/22/19 at 1930, OSMAR ondansetron 2020-0 Yes [id number] 4mg Take 1 Univers (ZOFRAN) 4 8-15 tablet by ity of mg tablet 00:00: mouth [place] 00 every 8 Medical (eight) Branch hours as needed for Nausea and Vomiting (N/V) for up to 15 doses. ondansetron 2020-0 Yes [id number] 4mg Take 1 Univers (ZOFRAN) 4 8-15 tablet by ity of mg tablet 00:00: mouth [place] 00 every 8 Medical (eight) Branch hours as needed for Nausea and Vomiting (N/V) for up to 15 doses. ondansetron 2020-0 Yes [id number] 4mg Take 1 Univers (ZOFRAN) 4 8-15 tablet by ity of mg tablet 00:00: mouth [place] 00 every 8 Medical (eight) Branch hours as needed for Nausea and Vomiting (N/V) for up to 15 doses. ondansetron 2020-0 Yes [id number] 4mg Take 1 Univers (ZOFRAN) 4 8-15 tablet by ity of mg tablet 00:00: mouth [place] 00 every 8 Medical (eight) Branch hours as needed for Nausea and Vomiting (N/V) for up to 15 doses. ondansetron 2020-0 Yes [id number] 4mg Take 1 Univers (ZOFRAN) 4 8-15 tablet by ity of mg tablet 00:00: mouth [place] 00 every 8 Medical (eight) Branch hours as needed for Nausea and Vomiting (N/V) for up to 15 doses. ondansetron 2020-0 Yes [id number] 4mg Take 1 Univers (ZOFRAN) 4 8-15 tablet by ity of mg tablet 00:00: mouth [place] 00 every 8 Medical (eight) Branch hours as needed for Nausea and Vomiting (N/V) for up to 15 doses. ondansetron 2020-0 Yes [id number] 4mg Take 1 Univers (ZOFRAN) 4 8-15 tablet by ity of mg tablet 00:00: mouth [place] 00 every 8 Medical (eight) Branch hours as needed for Nausea and Vomiting (N/V) for up to 15 doses. ondansetron 2020-0 Yes [id number] 4mg Take 1 Univers (ZOFRAN) 4 8-15 tablet by ity of mg tablet 00:00: mouth [place] 00 every 8 Medical (eight) Branch hours as needed for Nausea and Vomiting (N/V) for up to 15 doses. ondansetron 2020-0 Yes [id number] 4mg Take 1 Univers (ZOFRAN) 4 8-15 tablet by ity of mg tablet 00:00: mouth [place] 00 every 8 Medical (eight) Branch hours as needed for Nausea and Vomiting (N/V) for up to 15 doses. ondansetron 2020-0 Yes [id number] 4mg Take 1 Univers (ZOFRAN) 4 8-15 tablet by ity of mg tablet 00:00: mouth [place] 00 every 8 Medical (eight) Branch hours as needed for Nausea and Vomiting (N/V) for up to 15 doses. ondansetron 2020-0 Yes [id number] 4mg Take 1 Univers (ZOFRAN) 4 8-15 tablet by ity of mg tablet 00:00: mouth [place] 00 every 8 Medical (eight) Branch hours as needed for Nausea and Vomiting (N/V) for up to 15 doses. ondansetron 2020-0 Yes [id number] 4mg Take 1 Univers (ZOFRAN) 4 8-15 tablet by ity of mg tablet 00:00: mouth [place] 00 every 8 Medical (eight) Branch hours as needed for Nausea and Vomiting (N/V) for up to 15 doses. ondansetron 2020-0 Yes [id number] 4mg Take 1 Univers (ZOFRAN) 4 8-15 tablet by ity of mg tablet 00:00: mouth [place] 00 every 8 Medical (eight) Branch hours as needed for Nausea and Vomiting (N/V) for up to 15 doses. ondansetron 2020-0 Yes [id number] 4mg Take 1 Univers (ZOFRAN) 4 8-15 tablet by ity of mg tablet 00:00: mouth [place] 00 every 8 Medical (eight) Branch hours as needed for Nausea and Vomiting (N/V) for up to 15 doses. ondansetron 2020-0 Yes [id number] 4mg Take 1 Univers (ZOFRAN) 4 8-15 tablet by ity of mg tablet 00:00: mouth [place] 00 every 8 Medical (eight) Branch hours as needed for Nausea and Vomiting (N/V) for up to 15 doses. ondansetron 2020-0 Yes [id number] 4mg Take 1 Univers (ZOFRAN) 4 8-15 tablet by ity of mg tablet 00:00: mouth [place] 00 every 8 Medical (eight) Branch hours as needed for Nausea and Vomiting (N/V) for up to 15 doses. ondansetron 2020-0 Yes [id number] 4mg Take 1 Univers (ZOFRAN) 4 8-15 tablet by ity of mg tablet 00:00: mouth [place] 00 every 8 Medical (eight) Branch hours as needed for Nausea and Vomiting (N/V) for up to 15 doses. ondansetron 2020-0 Yes [id number] 4mg Take 1 Univers (ZOFRAN) 4 8-15 tablet by ity of mg tablet 00:00: mouth [place] 00 every 8 Medical (eight) Branch hours as needed for Nausea and Vomiting (N/V) for up to 15 doses. ondansetron 2020-0 Yes [id number] 4mg Take 1 Univers (ZOFRAN) 4 8-15 tablet by ity of mg tablet 00:00: mouth [place] 00 every 8 Medical (eight) Branch hours as needed for Nausea and Vomiting (N/V) for up to 15 doses. ondansetron 2020-0 Yes [id number] 4mg Take 1 Univers (ZOFRAN) 4 8-15 tablet by ity of mg tablet 00:00: mouth [place] 00 every 8 Medical (eight) Branch hours as needed for Nausea and Vomiting (N/V) for up to 15 doses. ondansetron 2020-0 Yes [id number] 4mg Take 1 Univers (ZOFRAN) 4 8-15 tablet by ity of mg tablet 00:00: mouth [place] 00 every 8 Medical (eight) Branch hours as needed for Nausea and Vomiting (N/V) for up to 15 doses. ondansetron 2020-0 Yes [id number] 4mg Take 1 Univers (ZOFRAN) 4 8-15 tablet by ity of mg tablet 00:00: mouth [place] 00 every 8 Medical (eight) Branch hours as needed for Nausea and Vomiting (N/V) for up to 15 doses. ondansetron 2020-0 Yes [id number] 4mg Take 1 Univers (ZOFRAN) 4 8-15 tablet by ity of mg tablet 00:00: mouth 00 every 8 Medical (eight) Branch hours as needed for Nausea and Vomiting (N/V) for up to 15 doses. ondansetron 2020-0 Yes [id number] 4mg Take 1 Univers (ZOFRAN) 4 8-15 tablet by ity of mg tablet 00:00: mouth 00 every 8 Medical (eight) Branch hours as needed for Nausea and Vomiting (N/V) for up to 15 doses. Phenergan 2019-0 No Notes: Do Mem oria 6-15 not give l 14:49: IV push. (Same as: Phenergan) Phenergan 2019- No Notes: Do Mem oria 6-15 not give l 14:49: IV push. (Same as: Phenergan) Naloxone No Notes: Memoria 6-15 Same as l 14:14: Narcan Ondansetron 0 No 4 mg, Memor ia 6-15 Route: l 14:14: IVP, ONCE, Dosing Weight 63.636, kg, PRN Nausea & Vomiting, Start date: 08/22/19 9:14:00 CDT Acetaminoph No Notes: [place] en 6-15 Infuse l 14:14: over 15 minutes Do not exceed 4gm/day of acetaminop hen MEDICATION WASTE Product Size: 1000 mg Product Wasted: ___ mg Morphine 2019-0 No 2 mg, 1 Memori a 6-15 mL, Route: l 14:14: IVP, Drug form: SOLN, Q5Min, Dosing Weight 63.636, kg, PRN Pain Score 4-6, Start date: 08/22/19 9:14:00 CDT, Duration: 5 doses or times, Stop date: Limited # of times, 0 Hydromorpho No Notes: [place] ne 6-15 Same as: l 14:14: Dilaudid Hydromorpho 2019- No Notes: [place] ne 6-15 Same as: l 14:14: Dilaudid Flumazenil 2019-0 No Notes: Memor ia 6-15 (Same as: l 14:14: Romazicon) Naloxone 2019-0 No Notes: Memoria 6-15 Same as l 14:14: Narcan Ondansetron 0 No 4 mg, Memor ia 6-15 Route: l 14:14: IVP, ONCE, Dosing Weight 63.636, kg, PRN Nausea & Vomiting, Start date: 08/22/19 9:14:00 CDT Acetaminoph 0 No Notes: [place] en 6-15 Infuse l 14:14: over 15 minutes Do not exceed 4gm/day of acetaminop hen MEDICATION WASTE Product Size: 1000 mg Product Wasted: ___ mg Morphine No 2 mg, 1 Memori a 6-15 mL, Route: l 14:14: IVP, Drug form: SOLN, Q5Min, Dosing Weight 63.636, kg, PRN Pain Score 4-6, Start date: 08/22/19 9:14:00 CDT, Duration: 5 doses or times, Stop date: Limited # of times, 0 Flumazenil 2019-0 No Notes: Memor ia 6-15 (Same as: l 14:14: Romazicon) glycopyrrol 0 No Route: IV, Memoria ate (ANES) 6-15 Drug form: l 13:56: INJ, ONCE, Stop date: 08/22/19 8:56:00 CDT neostigmine 0 No Route: IV, Memoria (ANES) 6-15 Drug form: l 13:56: INJ, ONCE, Stop date: 08/22/19 8:56:00 CDT glycopyrrol 2019-0 No Route: IV, Memoria ate (ANES) 6-15 Drug form: l 13:56: INJ, ONCE, Stop date: 08/22/19 8:56:00 CDT neostigmine 2019-0 No Route: IV, Memoria (ANES) 6-15 Drug form: l 13:56: INJ, ONCE, Stop date: 08/22/19 8:56:00 CDT Acetaminoph 2019-0 Yes Notes: Do M emoria en 300 MG / 6-15 not exceed l Codeine 13:53: 4gm/day of Herm johnnie Phosphate 00 acetaminop 30 MG Oral hen. (Same Tablet as: [Tylenol Tylenol with with Codeine #3] Codeine # 3) Acetaminoph 2019-0 Yes Notes: Do M emoria en 300 MG / 6-15 not exceed l Codeine 13:53: 4gm/day of Herm johnnie Phosphate 00 acetaminop 30 MG Oral hen. (Same Tablet as: [Tylenol Tylenol with with Codeine #3] Codeine # 3) Acetaminoph 2019-0 Yes 1 - 2 tab, Memoria en 300 MG / 6-15 PO, Q6H, l Codeine 13:51: PRN Pain, Elizabeth nn Phosphate 00 Take with 30 MG Oral food., X 5 Tablet day, # 24 [Tylenol tab, 0 with Refill(s) Codeine #3] Ibuprofen 2019-0 Yes 800 mg = 1 Me moria 800 MG Oral 6-15 tab, PO, l Tablet 13:51: TID-Meals, Elizabeth nn [Motrin] 00 with food or milk not to exceed 3200 mg/day, X 5 day, # 15 tab, 0 Refill(s) Acetaminoph 2019-0 Yes 1 - 2 tab, Memoria en 300 MG / 6-15 PO, Q6H, l Codeine 13:51: PRN Pain, Elizabeth nn Phosphate 00 Take with 30 MG Oral food., X 5 Tablet day, # 24 [Tylenol tab, 0 with Refill(s) Codeine #3] Ibuprofen 2019-0 Yes 800 mg = 1 Me moria 800 MG Oral 6-15 tab, PO, l Tablet 13:51: TID-Meals, Elizabeth nn [Motrin] 00 with food or milk not to exceed 3200 mg/day, X 5 day, # 15 tab, 0 Refill(s) ceFAZolin 2019-0 No Route: IV, Me moria (ANES) 6-15 Drug form: l 13:29: INJ, ONCE, [place] 00 Stop date: 08/22/19 8:29:00 CDT acetaminoph 2019-0 No Route: IV, Memoria en (ANES) 6-15 Drug form: l 13:29: INJ, ONCE, [place] 00 Stop date: 08/22/19 8:29:00 CDT ondansetron 2020-0 No Route: IV, Memoria (ANES) 6-15 Drug form: l 13:29: INJ, ONCE, Stop date: 08/22/19 8:29:00 CDT dexamethaso 2020-0 No Route: IV, Memoria ne (ANES) 6-15 Drug form: l 13:29: INJ, ONCE, Stop date: 08/22/19 8:29:00 CDT ceFAZolin 2020-0 No Route: IV, Me moria [...] 8:24:00 CDT rocuronium 2020-0 No Route: IV, Marian emoria (ANES) 6-15 Drug form: l 13:24: INJ, ONCE, Stop date: 08/22/19 8:24:00 CDT midazolam 2020-0 No Route: IV, Me [...] 8:24:00 CDT rocuronium 2020-0 No Route: IV, Marian emoria (ANES) 6-15 Drug form: l 13:24: INJ, ONCE, Stop date: 08/22/19 8:24:00 CDT Lactated 2020-0 No Route: IV, Mem oria Ringers 6-15 Total l Injection 12:33: Volume: Elizabeth nn IV (ANES) 00 1,000, 1000 mL Start date: 08/22/19 7:33:00 CDT, Stop date: 08/22/19 8:33:00 CDT Lactated 2020-0 No Route: IV, Mem oria Ringers 6-15 Total l Injection 12:33: Volume: Elizabeth nn IV (ANES) 00 1,000, 1000 mL Start date: 08/22/19 7:33:00 CDT, Stop date: 08/22/19 8:33:00 CDT 72 HR 2020-0 No 1 patch, Memoria Scopolamine 6-15 Route: l 0.0139 12:23: TOP, Drug Carlos n MG/HR 00 Form: Transdermal ERFILM, Patch Dosing Weight 63.636, kg, ONCE, Start date: 08/22/19 7:23:00 CDT, Stop date: 08/22/19 7:23:00 CDT 72 HR 2020-0 No 1 patch, Memoria Scopolamine 6-15 Route: l 0.0139 12:23: TOP, Drug Carlos n MG/HR 00 Form: Transdermal ERFILM, Patch Dosing Weight 63.636, kg, ONCE, Start date: 08/22/19 7:23:00 CDT, Stop date: 08/22/19 7:23:00 CDT Calcium 2020-0 No 1,000 mL, Memor ia Chloride 6-15 Rate: 75 l 0.0014 11:45: ml/hr, [place] MEQ/ML / 00 Infuse Potassium over: 13.3 Chloride hr, Route: 0.004 IV, Dosing MEQ/ML / Weight Sodium 63.636 kg, Chloride Total 0.103 Volume: MEQ/ML / 1,000, Sodium Start Lactate date: 0.028 20 MEQ/ML 6:45:00 Injectable CDT, Solution Duration: 30 day, Stop date: 09/21/19 6:44:00 CDT, 1.69, m2, 0 Calcium 2020-0 No 1,000 mL, Memor ia Chloride 6-15 Rate: 75 l 0.0014 11:45: ml/hr, [place] MEQ/ML / 00 Infuse Potassium over: 13.3 Chloride hr, Route: 0.004 IV, Dosing MEQ/ML / Weight Sodium 63.636 kg, Chloride Total 0.103 Volume: MEQ/ML / 1,000, Sodium Start Lactate date: 0.028 20 MEQ/ML 6:45:00 Injectable CDT, Solution Duration: 30 day, Stop date: 09/21/19 6:44:00 CDT, 1.69, m2, 0 Calcium 2020-0 No 1,000 mL, Memor ia Chloride 6-15 Rate: 75 l 0.0014 11:40: ml/hr, [place] MEQ/ML / 00 Infuse Potassium over: 13.3 Chloride hr, Route: 0.004 IV, Dosing MEQ/ML / Weight Sodium 63.636 kg, Chloride Total 0.103 Volume: MEQ/ML / 1,000, Sodium Start Lactate date: 0.028 08/22/19 MEQ/ML 6:40:00 Injectable CDT, Solution Duration: 30 day, Stop date: 09/21/19 6:39:00 CDT, 1.69, m2, 0 Calcium 2020-0 No 1,000 mL, Memor ia Chloride 6-15 Rate: 75 l 0.0014 11:40: ml/hr, [place] MEQ/ML / 00 Infuse Potassium over: 13.3 Chloride hr, Route: 0.004 IV, Dosing MEQ/ML / Weight Sodium 63.636 kg, Chloride Total 0.103 Volume: MEQ/ML / 1,000, Sodium Start Lactate date: 0.028 20 MEQ/ML 6:40:00 Injectable CDT, Solution Duration: 30 day, Stop date: 09/21/19 6:39:00 CDT, 1.69, m2, 0 Lactated 2020-0 No 1,000 mL, [place] ar[place] Ringers IV 08-21 Rate: 40 l 1,000 mL 11:16: ml/hr, [place] 00 Infuse over: 25 hr, Route: IV, Dosing Weight 63.636 kg, Total Volume: 1,000, Start date: 08/22/19 6:16:00 CDT, Duration: 30 day, Stop date: 09/21/19 6:15:00 CDT, 1.69, m2, 0 Lactated 2020-0 No 1,000 mL, [place] ar[place] Ringers IV 6-15 Rate: 40 l 1,000 mL 11:16: ml/hr, [place] 00 Infuse over: 25 hr, Route: IV, Dosing Weight 63.636 kg, Total Volume: 1,000, Start date: 08/22/19 6:16:00 CDT, Duration: 30 day, Stop date: 09/21/19 6:15:00 CDT, 1.69, m2, 0 Tramadol 2020-0 No 50 mg, PO, Mem oria 6-11 Q4-6H, PRN l 15:59: Pain, # 20 [place] 00 tab, 0 Refill(s) Famotidine 2020-0 Yes 20 mg = 1 Me moria 20 MG Oral 6-11 tab, PO, l Tablet 15:59: PRN, 0 [place] 00 Refill(s) Tramadol 0 No 50 mg, PO, Mem oria 6-11 Q4-6H, PRN l 15:59: Pain, # 20 [place] 00 tab, 0 Refill(s) Famotidine 0 Yes 20 mg = 1 Me moria 20 MG Oral 6-11 tab, PO, l Tablet 15:59: PRN, 0 [place] 00 Refill(s) Vital Signs Vital Name Observation Time Observation Value Comments Source Systolic blood 2022-07-14 20:24:00 113 mm[Hg] Univer [facility]ity of [facility] Diastolic blood 2022-07-14 20:24:00 71 mm[Hg] [facility] Heart rate 2022-07-14 20:24:00 84 /min [facility] Body temperature 2022-07-14 20:24:00 36.89 Dianna [facility] Respiratory rate 2022-07-14 20:24:00 18 /min [facility] Body height 2022-07-14 20:24:00 157.5 cm Universi ty [facility] Body weight 2022-07-14 20:24:00 66.497 kg [facility] BMI 2022-07-14 20:24:00 26.81 kg/m2 [facility] Oxygen saturation in 2022-07-14 20:24:00 99 /min [facility] Arterial blood by [facility] Pulse oximetry Branch Systolic blood 2022-06-23 18:03:00 109 mm[Hg] Univer sity [facility] Diastolic blood 2022-06-23 18:03:00 75 mm[Hg] Unive rsity of [facility] Heart rate 2022-06-23 18:03:00 78 /min Universi ty [facility] Body temperature 2022-06-23 18:03:00 36.72 Dianna [facility] Respiratory rate 2022-06-23 18:03:00 16 /min [facility] Body height 2022-06-23 18:03:00 157.5 cm Universi ty [facility] Body weight 2022-06-23 18:03:00 64.32 kg Universi ty [facility] [place] [facility] BMI 2022-06-23 18:03:00 25.94 kg/m2 [facility] [place] [facility] Oxygen saturation in 2022-06-23 18:03:00 100 /min University of Arterial blood by [place] [employer] [facility] Pulse oximetry Branch Systolic blood 2022-06-12 15:47:00 126 mm[Hg] Univer sity of pressure [place] [facility] Diastolic blood 2022-06-12 15:47:00 85 mm[Hg] Unive rsity of pressure [place] [facility] Heart rate 2022-06-12 15:47:00 94 /min [facility] [place] [facility] Body temperature 2022-06-12 15:47:00 36.67 Dianna [facility] [place] [facility] Respiratory rate 2022-06-12 15:47:00 18 /min Univ ers[facility] [place] [facility] Body height 2022-06-12 15:47:00 157.5 cm [facility] [place] [facility] Body weight 2022-06-12 15:47:00 64.411 kg [facility] [place] [facility] BMI 2022-06-12 15:47:00 25.97 kg/m2 [facility] [place] [facility] Systolic blood 2022-05-14 16:26:00 122 mm[Hg] Univer sity of pressure [place] [facility] Diastolic blood 2022-05-14 16:26:00 71 mm[Hg] Unive rsity of pressure [place] [facility] Heart rate 2022-05-14 16:26:00 83 /min [facility] [place] [facility] Body temperature 2022-05-14 16:26:00 36.72 Dianna [facility] [place] [facility] Respiratory rate 2022-05-14 16:26:00 18 /min Univ ers[facility] [place] [facility] Body height 2022-05-14 16:26:00 157.5 cm [facility] [place] [facility] Body weight 2022-05-14 16:26:00 64.592 kg [facility] [place] [facility] BMI 2022-05-14 16:26:00 26.05 kg/m2 [facility] [place] [facility] Oxygen saturation in 2022-05-14 16:26:00 100 /min University of Arterial blood by [place] [employer] [facility] Pulse oximetry Branch Systolic blood 2019-10-23 02:00:00 124 mm[Hg] Univer sity of pressure [facility] Diastolic blood 2019-10-23 02:00:00 77 mm[Hg] Unive rsity of pressure [facility] Heart rate 2019-10-23 02:00:00 86 /min [facility] Respiratory rate 2019-10-23 02:00:00 17 /min [facility] Oxygen saturation in 2019-10-23 01:00:00 98 /min [facility] Arterial blood by [facility] Pulse oximetry [place] Body temperature 2019-10-23 00:18:00 37.56 Dianna [facility] height 2019-10-23 00:18:00 157.5 cm [facility] Body weight 2019-10-23 00:18:00 60.782 kg [facility] BMI 2019-10-23 00:18:00 24.51 kg/m2 [facility] Respitory Rate 2019-08-22 15:40:00 Memori al [place] Systolic (mm Hg) 2019-08-22 15:40:00 Glen rial [place] Diastolic (mm Hg) 2019-08-22 15:40:00 Mem orial [place] Respitory Rate 2019-08-22 15:25:00 Memori al [place] Systolic (mm Hg) 2019-08-22 15:25:00 Glen rial [place] Diastolic (mm Hg) 2019-08-22 15:25:00 Mem orial [place] Respitory Rate 2019-08-22 15:09:00 Memori al [place] Systolic (mm Hg) 2019-08-22 15:09:00 Glen rial [place] Diastolic (mm Hg) 2019-08-22 15:09:00 Mem orial [place] Height 2019-08-18 15:56:00 157.48 cm [facility] Weight 2019-08-18 15:56:00 [facility] BMI Calculated 2019-08-18 15:56:00 Memori al Chucho Procedures Procedure Date / Time Performing Clinician Source Performed POCT URINALYSIS W/O 2022-07-14 00:00:00 Nell Caldwell [facility] POCT URINALYSIS W/O 2022-06-12 00:00:00 Caldwell, Nell Cam [facility] SCANNED LAB RESULTS 2022-05-30 05:01:00 Doctor Un[facility]igned, [facility] <14 WEEKS US 2022-05-14 17:34:24 Nell Caldwell [facility] URINE DRUG (IMMUNOASSAY) 2022-05-14 17:10:00 Nell Caldwell [facility] DRUG [facility] SCREEN URINE CULTURE 2022-05-14 17:10:00 Nell Caldwell [place] [facility] GC & CHLAMYDIA AMPLIFIED 2022-05-14 17:10:00 Nell Caldwell [facility] LAB ONLY PAP 2022-05-14 17:10:00 Nell Caldwell [facility] SMEAR-LIQUID BASED Medical Branc h GALV ONLY - VAGINAL 2022-05-14 17:10:00 Nell Caldwell [facility] PATHOGENS BY [facility] ACID TESTING HIGH RISK HPV-THIN PREP 2022-05-14 17:10:00 Nell Caldwell [facility] TRICHOMONAS AMPLIFIED 2022-05-14 17:10:00 Nell Caldwell [facility] PAP SMEAR-LIQUID 2022-05-14 17:10:00 Nell Caldwell [facility] CONSENT/REFUSAL FOR 2022-05-14 15:54:06 Doctor Unassigned, [facility] POCT TEST 2022-05-14 00:00:00 Nell Caldwell [facility] POCT URINALYSIS W/O 2022-05-14 00:00:00 Nell Caldwell [facility] XR CHEST 1 VW 2019-10-23 00:53:53 Job Ellison [facility] LIPASE 2019-10-23 00:32:00 Job Ellison [facility] TROPONIN I 2019-10-23 00:32:00 Job Ellison [facility] COMP. METABOLIC PANEL 2019-10-23 00:32:00 [facility] ([id number]) [facility] CBC WITH DIFF 2019-10-23 00:32:00 Job Ellison [facility] URINALYSIS 2019-10-23 00:32:00 Job Ellison [facility] EKG-12 LEAD 2019-10-23 00:27:13 Job Ellison [facility] NOTICE OF PRIVACY 2019-10-23 00:07:39 Doctor Unassigned, No Univ [facility] PRACTICES Name [facility] CONSENT/REFUSAL FOR 2019-10-23 00:07:23 Doctor Unassigned, [facility] Name [facility] Encounters Start End Encounter Admission Attending Care Care Encounter Source Date/Time Date/Time Type Type Clinicians Facility Department ID 2022-07-22 2022-07-22 Dressing Room Attendant Ultrasound, Adc [facility] 1.2 .840.114 [id number] Univers 14:30:00 15:30:00 Visit Carmelo Gray 350.1.13. 10 ity [facility] [place] [phone] Az dical [address] 2022-07-22 2022-07-22 Outpatient P ISAAC [facility] [id number] Univers 14:30:00 14:30:00 CARMELOALANA swanson [facility] 2022-07-14 2022-07-14 Outpatient R NELL CALDWELL [facility] [id number] Univers 15:30:00 15:46:21 ity of [facility] 2022-07-14 2022-07-14 Routine Nell Caldwell [facility] 1..937.824 [id number] Univers 15:30:00 15:46:21 Cam [place] 350.1.13.10 [place] of [place] [phone] Az dical NAL [address] [place] [address] 2022-06-26 2022-06-26 Telephone Nell Caldwell [facility] 1..840.114 10 [id number] Univers 00:00:00 00:00:00 Cam [place] 350.1.13.10 i ty [place] [phone] Me dical NAL [address] [facility] 2022-06-23 2022-06-23 Outpatient R BARBARA [facility] [id number] Univers 12:40:00 13:14:02 REENU ity of [facility] 2022-06-23 2022-06-23 [facility]gent [facility] 1.2.840.11 [id number] Univers 12:40:00 13:14:02 Care Unknown, Attending HEALTH 350.1.13.[address] [facility] 4.2.7.2.686 [place] as ANN MARIE?BLEA [phone] Az dical EY [address] [facility] OFFICE [facility] 2022-06-23 2022-06-23 Telephone Nell Caldwell [facility] 1.2.840.114 [id number] Univers 00:00:00 00:00:00 Cam [place] 350.1.13.10 i ty of [place] [phone] Az dical NAL 134 [facility] 2022-06-19 2022-06-19 Dressing Room Attendant 2, Adc Lab [facility] 1.2.840.114 [id number] Univers 08:15:00 08:30:00 Visit Nell Caldwell 350.1.13.10 ity of [place] [phone] Az dicfrancisco [facility] 353 [facility] 2022-06-19 2022-06-19 Outpatient R NELL CALDWELL [facility] [id number] Univers 08:15:00 08:15:00 ity of [facility] 2022-06-12 2022-06-12 Outpatient R NELL CALDWELL [facility] [id number] Univers 10:45:00 11:01:12 ity of [facility] 2022-06-12 2022-06-12 Routine Nell Caldwell [facility] 1.2.373.584 [id number] Univers 10:45:00 11:01:12 Gerard [place] 350.1.13.10 ity of [place] [phone] Az dical NAL 134 [facility] 2022-06-09 2022-06-09 Telephone Nell Caldwell [facility] 1.2.840.114 [id number] Univers 00:00:00 00:00:00 Cam [place] 350.1.13.10 i ty of [place] [phone] Az dical NAL 134 [facility] 2022-05-30 2022-05-30 Dressing Room Attendant 2, Adc Lab [facility] 1.2.840.114 [id number] Univers 09:15:00 09:30:00 Visit Nell Caldwell [place] 350.1.13.10 ity [facility] 4.2.7.2.[place] [phone] Az dicfrancisco NAL 353 [facility] 2022-05-30 2022-05-30 Outpatient R CALDWELLNELL [facility] [id number] Univers 09:15:00 09:15:00 ity of [facility] 2022-05-30 2022-05-30 Abstract Nell Caldwell [facility] 1.2.840.114 [id number] Univers 00:00:00 00:00:00 Cam [place] 350.1.13.10 i ty [facility] 4.2.[place]2.[place] [phone] Az dical NAL 134 [facility] 2022-05-30 2022-05-30 Telephone Nell Caldwell [facility] 1.2.840.114 10 [id number] Univers 00:00:00 00:00:00 Cam [place] 350.1.13.10 i ty of [place] 4[place] [phone] Az dical NAL 134 [facility] 2022-05-30 2022-05-30 Orders Doctor ISI 1.2.840.114 [id number] Univers 00:00:00 00:00:00 Only Unassigned, VY 350.1.13.10 ity of [place] [facility] 4.2.7.2.686 [place] as [phone] [address] 2022-05-15 2022-05-15 Dressing Room Attendant 2, Adc Lab [facility] 1.2.840.114 [id number] Univers 09:00:00 10:00:44 Visit Nell Caldwell [place] 350.1.13.10 ity of [facility] 4.2.[place] [phone] Az dical NAL 353 [facility] 2022-05-15 2022-05-15 Outpatient R NELL CALDWELL [facility] [id number] Univers 09:00:00 09:00:00 ity of [facility] 2022-05-15 2022-05-15 Telephone Nell Caldwell [facility] 1.2.840.114 [id number] Univers 00:00:00 00:00:00 Cam [place] 350.1.13.10 i ty of [place] [phone] Az dical NAL 134 [facility] 2022-05-15 2022-05-15 Case Nell Caldwell [facility] [id number] [id number] Univers 00:00:00 00:00:00 Management Cam [place] 350.1.13.10 ity of [place] 4[place].2.[place] [phone] Az dical NAL 134 [facility] 2022-05-14 2022-05-14 Outpatient R NELL CALDWELL [facility] [id number] Univers 10:00:00 11:16:37 ity of [facility] 2022-05-14 2022-05-14 Initial Nell Caldwell [facility] 1.2.381.689 [id number] Univers 10:00:00 11:16:37 Cam [place] 350.1.13.10 ity of [place] 4[place] [phone] Az dical NAL 134 [facility] 2022-05-14 2022-05-14 Orders Doctor ISI 1.2.840.114 [id number] Univers 00:00:00 00:00:00 Only Unassigned, VY 350.1.13.10 ity of [place] [facility] 4.2.7.2.686 [place] as [phone] [address] 2019-10-25 2019-10-25 Telephone [facility], [facility] 1.2.840.114 [id number] Univers 00:00:00 00:00:00 Attending SPECIALTY 350.1.13.10 ity of [facility] 4.2.7.2.686 [facility] AT [phone] Az jair RAJPUT 072 [facility] 2019-10-22 2019-10-22 Emergency [place], [facility] 1.2.532.514 [id number] Univers 19:23:00 21:49:00 Job [place] 350.1.13.10 ity [facility] 4.2.7.2.686 [facility] [phone] [facility] thomas [address] [place] 2019-10-22 2019-10-22 Emergency X CACLUCERO, [facility] ERT [id number] Univers 19:05:00 19:05:00 JOB [facility] 2019-08-22 2019-08-22 Day [facility] [id number] Memoria 10:24:00 15:55:00 Surgery r [place] 00 l [facility] 2019-08-22 2019-08-22 Day [facility] [id number] Memoria 10:24:00 15:55:00 Surgery r [place] 00 l [facility] 2019-08-22 2019-08-[address] [id number] 05:24:00 10:55:00 Yang L 00 2019-08-22 2019-08-22 Outpatient BRYCE MCMULLEN SISSY 7500 MHBL 05:24:00 10:55:00 YANG Results Test Description Test Time Test Comments Results Result Comments Source POCT URINALYSIS W/O SPECIFIC GRAVITY 2022-07-14 20:22:00 Test Item Value Reference Range Interpretation Comme nts POCT PH U (test code = 3254) n/a 5-8 POCT U LEUK EST (test code = 3263) n/a Negative - Negative POCT U NIT (test code = 3262) n/a Negative - Negative POCT U PROT (test code = 3259) negative Negative - Negative POCT U GLU (test code = 3256) negative Negative - Negative POCT U KETONE (test code = 3258) n/a Negative - Negative POCT U BLD (test code = 3257) n/a Negative - Negative [facility] URINALYSIS W/O SPECIFIC [id number] 15:51:00 Test Item Value Reference Range Interpretation Comments POCT PH U (test code = 3254) n/a 5-8 POCT U LEUK EST (test code = n/a Negative - Negative 3263) POCT U NIT (test code = 3262) n/a Negative - Negative POCT U PROT (test code = 3259) Negative Negative - Negative POCT U GLU (test code = 3256) Normal Negative - Negative POCT U KETONE (test code = 3258) n/a Negative - Negative POCT U BLD (test code = 3257) n/a Negative - Negative [facility] [id number] 16:42:00 Test Item Value Reference Range Interpretation Comments POCT PREG (test code = 1605) Positive On board controls acceptable with C Yes Line (test code = 3574) POCT PREG LOT # (test code = 3575) POCT PREG TEST DATE (test code = 3576) [facility] [id number] 16:42:00 Test Item Value Reference Range Interpretation Comments POCT PREG (test code = 1605) Positive On board controls acceptable with C Yes Line (test code = 3574) POCT PREG LOT # (test code = 3575) POCT PREG TEST DATE (test code = 3576) [facility] URINALYSIS W/O SPECIFIC [id number] 16:41:00 Test Item Value Reference Range Interpretation Comments POCT PH U (test code = 3254) n/a 5-8 POCT U LEUK EST (test code = n/a Negative - Negative 3263) POCT U NIT (test code = 3262) n/a Negative - Negative POCT U PROT (test code = 3259) negative Negative - Negative POCT U GLU (test code = 3256) negative Negative - Negative POCT U KETONE (test code = 3258) n/a Negative - Negative POCT U BLD (test code = 3257) n/a Negative - Negative [facility] URINALYSIS W/O SPECIFIC [id number] 16:41:00 Test Item Value Reference Range Interpretation Comments POCT PH U (test code = 3254) n/a 5-8 POCT U LEUK EST (test code = n/a Negative - Negative 3263) POCT U NIT (test code = 3262) n/a Negative - Negative POCT U PROT (test code = 3259) negative Negative - Negative POCT U GLU (test code = 3256) negative Negative - Negative POCT U KETONE (test code = 3258) n/a Negative - Negative POCT U BLD (test code = 3257) n/a Negative - Negative [facility] DNA [id number] 14:32:22 Test Item Value Reference Range Interpretation Comments OFELIA SPECIES (test NEGATIVE NEGATIVE code = ) G. VAGINALIS (test POSITIVE NEGATIVE A code = ) T. VAGINALIS (test NEGATIVE NEGATIVE UNLESS O THERWISE code = ) INDICATED, ALL TESTING PERFORMED [facility] PATH[facility] [address] [place] [address] 4 LABORATORY DIRE CTOR: EMANUEL WU M.D. CLIA NUMBER [id number] [place] [id number] HPV HIGH IF ABNORMAL [id number] 09:34:01 Test Item Value Reference Range Interpretation Comments HPV HIGH IF ABNORMAL CRITERIA NOT MET THINPREP (test code = 78932) PAP TEST, THINPREP, [id number] 09:34:01 Test Item Value Reference Range Interpretation Comments SOURCE: (test Cervical/Endoc code = 8001) ervical SLIDES: (test 1 code = 8011) LMP: (test code 09/28/2021 = 8021) SPECIMEN (NOTE) Satisfactory f or ADEQUACY: (test evaluation. code = 13345) Endocervical cells/transform ation zone component present. INTERPRETATION: NILM/NO EPITH. (test code = ABNORMALITY;SE 71603) E BELOW ------- NEGATIVE FO R INTRAEPITHELIAL LESION OR MALIGNANCY ( NILM) --------- --------- --------- - OTHER COMMENTS: (NOTE) Shift in jacquie ra (test code = suggestive of b acterial 8081) vaginosis.Funga l organisms consi stent with Ofelia pr esent. DRESSING ROOM ATTENDANT Cuong : (test code = Reddy,SCT( 8101) CP),IAC LOCATION: (test (NOTE) Specimens pr ocessed and code = 27174) interpreted at [facility], [address] [place] [address], , CLIA: [id number] CPT: (test code (NOTE) 52759 UNLESS OTHERWISE = 8140) INDICATED, COMP UTER AIDED AND CYTOTECHNOLOGIS T SCREENING PERFO RMED. The Pap test is a s creening test with an in herent, but low probabi lity of error. Your pat ient should be remin ded to consult you imm ediately if she experien thao any suspicious sign s or symptoms, regar dless of her Pap test re sult. An alternate repor t format containing imag es or consolidated pr ior Pap history is avai lable as applicable. UNL ESS OTHERWISE INDIC ATED, ALL TESTING PERFORM ED [facility], [place] [address] [place] [address] LABORATORY DIRE CTOR: EMANUEL WU M.D. CLIA NUMBER [id number] [place] [id number] CT/NG, TMA, [id number] 09:22:32 Test Item Value Reference Range Interpretation Comments GONORRHEA, TMA NEGATIVE NEGATIVE Assay metho dology is (test code = nucleic acid am plification 68208) by transcriptio n mediated amplification ( TMA) utilizing the A ptima Combo 2 Assay. CHLAMYDIA, TMA POSITIVE NEGATIVE A Assay method ology is (test code = nucleic acid am plification 49161) by transcriptio n mediated amplification ( TMA) utilizing the A ptima Combo 2 Assay. HIV 1/2 4TH GEN, RFLX [id number] 06:52:58 Test Item Value Reference Range Interpretation Comments HIV 1/2 4TH GEN, RFLX CONF (test NON-REACTIVE NON-REACTIVE code = 3514) HEPATITIS PANEL, [id number] 06:52:58 Test Item Value Reference Range Interpretation Comments HEPATITIS A IgM (test NON-REACTIVE NON-REACTIVE code = 77612) HEPATITIS B CORE IgM NON-REACTIVE NON-REACTIVE (test code = 4644) HEPATITIS B SURF AG NON-REACTIVE NON-REACTIVE (test code = 2739) HEPATITIS C ANTIBODY NON-REACTIVE NON-REACTIVE (test code = 4675) INTERPRETATION (NOTE) Hepatitis A HEPATITIS A: (test code sero logy shows no = 2552) evidence of acu te hepatitis A. INTERPRETATION (NOTE) Hepatitis B HEPATITIS B: (test code sero logy shows no = 35403) evidence of acu te hepatitis B and no indication of exposure to hepatitis B vir us in the previous agustina eight months. INTERPRETATION (NOTE) Hepatitis C HEPATITIS C: (test code sero logy shows no = 61159) evidence of exposure to hepatitisC viru s at this time. I t can take up to 12 months after exposure tothe hepatitis C vir us for antibodies to become detectab le in the blood in certain patient s. [id number] 05:54:12 Test Item Value Reference Range Interpretation Comments RPR RESULT (test code = NON-REACTIVE NON-REACTIVE 3501) RPR TITER (test code = 3500) NOT INDIC. TITER NOT INDIC. Chest 1 [id number] 02:25:48 No acute cardiopulmonary abnormality. Preliminary Report Dictated by Resident: Casey Khanna [...] Cholecystectomy clips overlie the right upper quadrant. [facility], Radiant Results Inft User - 10/22/2019 9:26 PM CDTDown EXAM: XR CHEST 1 VWCOMPARISON: None.TECHNIQUE: A single AP and lateral radiographs of the of the chest wereobtained.HISTORY: chest pain FINDINGS:Lungs: The lungs are clear. No pleural effusion or pneumothorax isidentified.Heart/Mediastinum: The cardiomediastinal silhouette is normal in size.Bones: No acute osseous abnormality is seen.Cholecystectomy clips overlie the right upper quadrant.IMPRESSIONNo acute cardiopulmonary abnormality.Preliminary Report Dictated by Resident: Casey Smith MD., have reviewed this study and agree with theabove report.[facility] [id number] 02:11:00 Test Item Value Reference Range Interpretation Comments TROPONIN I (test <0.012 See_Comment [Automated code = 6691408082) message] The system which generated this result transmitted reference range : <=0.034 ng/mL. The reference range was not used to interpr et this result as normal/abnormal . JESSICA (test code = Equal or Less than JESSICA) 0.034 ng/ml---Normal ?Note: Cardiac troponin begins to [...] patient's use of biotin. ? Lab Interpretation Normal (test code = 37552-0) [facility] [id number] 02:00:00 Test Item Value Reference Range Interpretation Comments LIPASE (test code = 2966725445) 93 U/L 0-220 Lab Interpretation (test code = Normal 41743-0) [facility]. METABOLIC PANEL (96074)2019-10-23 02:00:00 Test Item Value Reference Range Interpretation Comments NA (test code = 137 mmol/L 135-145 5663735252) K (test code = 3.9 mmol/L 3.5-5 9510855703) CL (test code = 106 mmol/L 98-108 7796614626) CO2 TOTAL (test code = 25 mmol/L 23-31 7230878101) AGAP (test code = 2-16 4329469422) BUN (test code = 12 mg/dL 7-23 0748714454) GLUCOSE (test code = 99 mg/dL 70-110 4076955358) CREATININE (test code 0.59 mg/dL 0.5-1.04 = 9710680814) TOTAL BILI (test code 0.3 mg/dL 0.1-1.1 = 3119397332) CALCIUM (test code = 9.4 mg/dL 8.6-10.6 9024395720) T PROTEIN (test code = 7.7 g/dL 6.3-8.2 0720387200) ALBUMIN (test code = 4.3 g/dL 3.5-5 6093073448) ALK PHOS (test code = 79 U/L 34-122 9228143798) ALTv (test code = 18 U/L 5-35 1742-6) AST(SGOT) (test code = 25 U/L 13-40 0653330273) eGFR Calculation mL/min/1.73m2 (Non-) (test code = 3551040825) eGFR Calculation mL/min/1.73m2 () (test code = 8581607464) JESSICA (test code = JESSICA) Association of [...] or urine or abnormalities in imaging tests). [facility]inalysis2020-08-16 01:36:00 Test Item Value Reference Range Interpretation Comments APPEARANCE (test code = Cloudy Clear A 7585942917) COLOR (test code = Yellow Yellow 3480776342) PH (test code = 4.8-8.0 3967433493) SP GRAVITY (test code = 1.003-1.030 1564132470) GLU U QUAL (test code = Normal Normal 1455521457) BLOOD (test code = Negative Negative 0538667562) KETONES (test code = Negative Negative 6974464357) PROTEIN (test code = Negative Negative 2887-8) UROBILIN (test code = Normal Normal 1217426262) BILIRUBIN (test code = Negative Negative 5102105337) NITRITE (test code = Negative Negative 5727449807) LEUK UTE (test code = Negative Negative 6338468831) RBC/HPF (test code = See_Comment [Autom ated message] 6272731889) The system [employer] generated this result transmitted ref erence range: 0 - 3 HP F. The reference range was not used to int erpret this result as normal/abnormal . WBC/HPF (test code = See_Comment [Autom ated message] 8495373943) The system [employer] generated this result transmitted ref erence range: 0 - 5 HP F. The reference range was not used to int erpret this result as normal/abnormal . BACTERIA (test code = Few Negative A 8993881171) MUCOUS (test code = Moderate Negative LPF A 5328634903) SQ EPITH (test code = HPF 9666082475) Lab Interpretation (test Abnormal code = 94884-8) [facility] with [id number] 00:59:00 Test Item Value Reference Range Interpretation [...] RDW-SD (test code = 44.6 fL 39-49.9 29176-0) RDW-CV (test code = 14.2 % 12-15.5 788-0) PLT (test code = See_Comment H [Automated 777-3) message] The sy stem which generated this result transmitted reference range : 166 - 358 10*3/ ?L. The reference r shubham was not used to interpret this result as normal/abnormal . MPV (test code = 10.0 fL 9.5-12.9 06954-4) NRBC/100 WBC (test See_Comment [Automat ed code = 3281199043) message] The system which generated this result transmitted reference range : 0.0 - 10.0 /100 WBCs. The refer ence range was not u sed to interpret th is result as normal/abnormal . NRBC x10^3 (test code <0.01 See_Comment [Auto mated = 7668608286) message] The s [employer] which generated this result transmitted reference range : 10*3/?L. The reference range was not used to interpret this result as normal/abnormal . GRAN MAT (NEUT) % 74.0 % (test code = 770-8) IMM GRAN % (test code 0.10 % = 7651094523) LYMPH % (test code = 15.1 % 736-9) MONO % (test code = 9.1 % 5905-5) EOS % (test code = 1.3 % 713-8) BASO % (test code = 0.4 % 706-2) GRAN MAT x10^3(ANC) 5.15 10*3/uL 1.88-7.09 (test code = 2535564002) IMM GRAN x10^3 (test <0.03 0-0.06 code = 4194208267) LYMPH x10^3 (test code 1.05 10*3/uL 1.32-3.29 L = 731-0) MONO x10^3 (test code 0.63 10*3/uL 0.33-0.92 = 742-7) EOS x10^3 (test code = 0.09 10*3/uL 0.03-0.39 711-2) BASO x10^3 (test code 0.03 10*3/uL 0.01-0.07 = 704-7) Lab Interpretation Abnormal (test code = 39008-1) [facility] [id number] 11:17:00 Test Item Value Reference Range Interpretation Comments U Preg (test code = U Negative (08/22/19 6:17 Preg) AM) [facility] [id number] 11:17:00 Test Item Value Reference Range Interpretation Comments U Preg (test code = U Negative (08/22/19 6:17 Preg) AM) [id number] 19:56:00 Test Item Value Reference Range Interpretation Comments Coronavirus (COVID-19) Not Detected (08/19/19 MAICOL (test code = 2:56 PM) Coronavirus (COVID-19) MAICOL) [facility] [id number] 19:56:00 Test Item Value Reference Range Interpretation Comments Coronavirus (COVID-19) Not Detected (08/19/19 MAICOL (test code = 2:56 PM) Coronavirus (COVID-19) MAICOL) [facility] Chucho"
--- NOTE | 2022-07-28 07:13 | EDPHYS ---
Physician Documentation [facility] Name: Seema Steele Age: 26 yrs Sex: Female : 1995 Arrival Date: 07/28/2022 Time: 06:49 Bed 7 Private MD: ED Physician Toan Alonzo HPI: 07/28 07:47 This 26 yrs old Black Female presents to ER via Ambulatory with complaints of Flu rt Symptoms. 07:47 Patient who is 20 weeks presents to the ED with cough, rhinorrhea, sore throat rt for about 3 days. She did not take anything for the symptoms. Denies any difficulty breathing. Denies other acute complaints at this time. Symptoms are mild in severity, no other aggravating or alleviating factors.. 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 - Social history:: Smoking status: Patient denies any tobacco usage or history of. - Family history:: not pertinent. ROS: 07:47 Cardiovascular: Negative for chest pain, palpitations, and edema, Abdomen/GI: Negative rt for abdominal pain, nausea, vomiting, diarrhea, and constipation, Skin: Negative for injury, rash, and discoloration, Neuro: Negative for headache, weakness, numbness, tingling, and seizure, Psych: Negative for depression, anxiety, suicide ideation, homicidal ideation, and hallucinations. 07:47 Constitutional: Positive for body aches, Negative for fever. 07:47 ENT: Positive for rhinorrhea, sore throat. 07:47 Respiratory: Positive for cough, Negative for shortness of breath. Exam: 07:47 Constitutional: This is a well developed, well nourished patient who is awake, alert, rt and in no acute distress. Head/Face: Normocephalic, atraumatic. Chest/axilla: Normal chest wall appearance and motion. Nontender with no deformity. No lesions are appreciated. Cardiovascular: Regular rate and rhythm with a normal S1 and S2. No gallops, murmurs, or rubs. Normal PMI, no JVD. No pulse deficits. Respiratory: Lungs have equal breath sounds bilaterally, clear to auscultation and percussion. No rales, rhonchi or wheezes noted. No increased work of breathing, no retractions or nasal flaring. Abdomen/GI: Soft, non-tender, with normal bowel sounds. No distension or tympany. No guarding or rebound. No evidence of tenderness throughout. 07:47 ENT: Mild posterior pharyngeal erythema without exudates or tonsillar hypertrophy, uvula is midline. Vital Signs: 06:57 BP 123 / 73; Pulse 97; Resp 16; Temp 99.2(O); Pulse Ox 100% on R/A; Weight 65.77 kg ll3 (R); Height 5 ft. 2 in. (R); 07:12 BP 127 / 75; Pulse 92; Resp 16; Pulse Ox 100% on R/A; ko1 06:57 Body Mass Index 26.52 (65.77 kg, 157.48 cm) ll3 MDM: 06:53 Patient medically screened. bs3 07:47 Differential Diagnosis Influenza, viral URI, strep pharyngitis. Data reviewed: vital rt signs, nurses notes. Test considered but Not performed: Labs: Patient with cough, no lymphadenopathy, oropharynx is not consistent with a strep pharyngitis, do not believe that testing is indicated. X-ray: Clear breath sounds, stable vital signs, x-ray not indicated. Counseling: I had a detailed discussion with the patient and/or guardian regarding: the historical points, exam findings, and any diagnostic results supporting the discharge/admit diagnosis, the need for outpatient follow up. Administered Medications: No medications were administered Disposition Summary: 07/28/22 07:12 Discharge Ordered Location: Home rt Problem: new rt Symptoms: are unchanged rt Condition: Stable rt Diagnosis - Acute upper respiratory infection, unspecified rt Followup: rt - With: Private Physician - When: 2 - 3 days - Reason: Discharge Instructions: - Discharge Summary Sheet rt - Upper Respiratory Infection, Adult rt Forms: - Medication Reconciliation Form rt - Thank You Letter rt - Antibiotic Education rt - Prescription Opioid Use rt Signatures: Aylin Hawkins RN RN ll3 John Hansen MD MD bs3 Toan Alonzo MD MD rt
--- NOTE | 2022-07-28 07:13 | ER ---
Nurse's Notes [facility] Name: Seema Steele Age: 26 yrs Sex: Female : 1995 Arrival Date: 07/28/2022 Time: 06:49 Bed 7 Private MD: Diagnosis: Acute upper respiratory infection, unspecified Presentation: 07/28 06:57 Chief complaint: Patient states: C/o sore throat, cough, runny nose, and chills X2 ll3 days. Coronavirus screen: Vaccine status: Patient reports receiving the 2nd dose of the covid vaccine. chills, cough unrelated to allergies, runny nose. Ebola Screen: No symptoms or risks identified at this time. Initial Sepsis Screen: Does the patient meet any 2 criteria? HR > 90 bpm. No. Patient's initial sepsis screen is negative. Does the patient have a suspected source of infection? No. Patient's initial sepsis screen is negative. Risk Assessment: Do you want to hurt yourself or someone else? Patient reports no desire to harm self or others. Onset of symptoms was July 26, 2022. 06:57 Method Of Arrival: Ambulatory ll3 06:57 Acuity: MARY ANNE 3 ll3 Triage Assessment: 06:59 General: Appears uncomfortable, Behavior is calm, cooperative. General: Reports chills ll3 for. Pain: Complains of pain in soft palate Pain does not radiate. EENT: Reports Sore throat. Neuro: Level of Consciousness is awake, alert, obeys commands, Oriented to person, place, time, situation. Respiratory: Respiratory effort is even, unlabored, Respiratory pattern is regular, symmetrical. Respiratory: Reports cough that is. Derm: Skin is pink, warm \T\ dry. 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 - Social history:: Smoking status: Patient denies any tobacco usage or history of. - Family history:: not pertinent. Screenin:02 [facility] ED Fall Risk Assessment (Adult) History of falling in the last 3 months, ll3 including since admission No falls in past 3 months (0 pts) Confusion or Disorientation No (0 pts) Intoxicated or Sedated No (0 pts) Impaired Gait No (0 pts) Mobility Assist Device Used No (0 pt) Altered Elimination No (0 pt) Score/Fall Risk Level 0 - 2 = Low Risk Oriented to surroundings, Maintained a safe environment, Educated pt \T\ family on fall prevention, incl call for assistance when getting out of bed. Abuse screen: Denies threats or abuse. Denies injuries from another. Nutritional screening: No deficits noted. Tuberculosis screening: No symptoms or risk factors identified. Assessment: 07:15 Neuro: No deficits noted. Cardiovascular: No deficits noted. Respiratory: Reports cough ko1 that is dry. GI: No deficits noted. : No deficits noted. EENT: Reports nasal congestion. Derm: No deficits noted. Musculoskeletal: No deficits noted. Vital Signs: 06:57 BP 123 / 73; Pulse 97; Resp 16; Temp 99.2(O); Pulse Ox 100% on R/A; Weight 65.77 kg ll3 (R); Height 5 ft. 2 in. (R); 07:12 BP 127 / 75; Pulse 92; Resp 16; Pulse Ox 100% on R/A; ko1 06:57 Body Mass Index 26.52 (65.77 kg, 157.48 cm) ll3 ED Course: 06:51 Patient arrived in ED. am2 06:59 Toan Alonzo MD is Attending Physician. rt 06:59 Triage completed. ll3 06:59 Arm band placed on Patient placed in an exam room, on a stretcher, on pulse oximetry. ll3 07:02 Patient has correct armband on for positive identification. Bed in low position. Call ll3 light in reach. Side rails up X 1. 07:05 Abby Hunt, JUJU is Primary Nurse. jl7 07:15 No provider procedures requiring assistance completed. Patient did not have IV access ko1 during this emergency room visit. Administered Medications: No medications were administered Medication: 07:15 VIS not applicable for this client. ko1 Outcome: 07:12 Discharge ordered by . rt 07:15 Discharged to home ambulatory. ko1 07:15 Condition: stable 07:15 Discharge instructions given to patient, Instructed on discharge instructions, follow up and referral plans. Demonstrated understanding of instructions, follow-up care. 07:19 Patient left the ED. ko1 Signatures: Abby Hunt RN RN jl7 Jennifer Sutherland Lynsea, RN RN ll3 Kell Redding RN RN ko1 Toan Alonzo MD MD rt
[2022-07-28 07:43] VITALS: TEMP 99.2; O2SAT 100
[2022-07-28 07:47] VITALS: BP 127/75
== END 2022-07-28 07:19 | disposition home or self-care (01) ==
LOC: ER 06:49
DX: J06.9 Acute upper respiratory infection, unspecified (principal)